=== PATIENT | female | born 1945 | race Caucasian/White ===

== ENCOUNTER 2022-04-16 11:08 | Outpatient (RCR) | payer MEDICARE, SELFPAY | END 2022-06-23 14:21 | disposition home or self-care (01) | PROVIDERS: PCP Family Medicine; Visit Provider Orthopaedic Surgery | DX: M25.561 Pain in right knee (principal); R26.9 Unspecified abnormalities of gait and mobility; Z51.89 Encounter for other specified aftercare | CPT/HCPCS: 97110; 97112 ==

== ENCOUNTER 2023-09-28 10:23 | Emergency (ER) | payer MEDICARE, SELFPAY ==
[2023-09-28 10:34] VITALS: BP 162/88; PULSE 70; RESP 18; TEMP 36.6; O2SAT 98; BMI 31.8
--- NOTE | 2023-09-28 11:05 | CRLHL7_ITS ---
For Patients: As a result of the Century Cures Act, medical imaging exams and procedure reports are released immediately into your electronic medical record. You may view this report before your referring provider. If you have questions, please contact your health care provider. INDICATION: Left flank pain TECHNIQUE: Axial images were obtained from the diaphragm to the pubic symphysis. Reformats were obtained in the coronal and sagittal plane. IV Contrast: None Oral Contrast: None COMPARISON: Abdomen and pelvis CT 02/06/2021 FINDINGS: Lower chest: Large hiatal hernia with most of the stomach intrathoracic. Calcified granulomata. Liver: Normal in contour with hepatic cysts, largest measuring 11 millimeters. Gallbladder and bile ducts: Unremarkable. No stones or inflammation. No biliary dilatation. Spleen: Calcification in the spleen consistent with old granulomatous disease. Pancreas: Moderate pancreatic atrophy. Adrenal glands: Unremarkable. No nodules. Kidneys: Nephrolithiasis with moderate left hydronephrosis and an obstructing stone at the left ureteropelvic junction measuring 7 x 4 x 10 millimeters. Vasculature: Atherosclerosis without abdominal aortic aneurysm. GI tract: Large hiatal hernia with the stomach intrathoracic. No dilated loops of large or small intestine with colonic diverticulosis noted. Pelvis: Status post hysterectomy. Bones: Diffuse degenerative disc disease lumbar spine with anterolisthesis at L4-5 measuring 5 millimeters. IMPRESSION: 1. Nephrolithiasis with moderate left hydronephrosis and obstructing left ureteropelvic junction stone measuring 7 x 4 x 10 millimeters. 2. Large hiatal hernia. 3. Colonic diverticulosis. 4. Old granulomatous disease. Please note that all CT scans at this facility use dose modulation, iterative reconstruction, and/or weight-based dosing when appropriate to reduce radiation dose to as low as reasonably achievable. Dictated by Rolando Portillo MD @ 09/28/2023 1:37:43 PM (Electronically Signed)
--- NOTE | 2023-09-28 12:19 | ED_ITS ---
HPI - General Adult General Date Seen: 09/28/23 Chief complaint: Back Injury/Pain Stated complaint: Lower L back pain Time Seen by Provider: 09/28/23 10:49 Source: patient Mode of arrival: ambulatory Limitations: no limitations History of Present Illness HPI narrative: Patient is a 77-year-old here with her with left-sided back pain which started yesterday. She said that she has been having some low back pain for a while which she had thought a whole lot about because they have been moving some things in emptying out her attic and so she has been more physical than she normally would be. She has had some just generalized mid low back pain. Yesterday however she had onset of pain in her left side which was severe and associated with vomiting. She does have a remote history of kidney stone. She has not had urinary symptoms. The severe pain yesterday did resolve but then she developed severe flank pain again today again associated with vomiting and she decided to come in. No fevers. No diarrhea, she does say that for about 6 months she has been having problems with fecal incontinence which she assumed was just because she is getting old. She says she has a normal bowel movement about once a day, does not have diarrhea, black or bloody stools. Later in the day however she says that she will have incontinence of stool. She just assumed that she was not emptying out completely the 1st time she had a bowel movement. She has had multiple colonoscopies as she has a history of GI bleed and anemia, she says no source was ever found and her last colonoscopy was 5 or 6 years ago. Related Data Home Medications Medication Instructions Recorded Confirmed acetaminophen 500 mg tablet 1,000 mg PO PRN 04/23/22 04/23/22 amlodipine 5 mg tablet 5 mg PO DAILY 04/23/22 09/28/23 cholecalciferol (vitamin D3) 50 2,000 unit PO DAILY 04/23/22 09/28/23 mcg (2,000 unit) tablet clobetasol 0.05 % topical cream 1 topical .2X/Week as needed PRN 04/23/22 04/23/22 omeprazole 20 mg capsule,delayed 20 mg PO QDAY 04/23/22 09/28/23 release venlafaxine 150 mg 150 mg PO DAILY 04/23/22 09/28/23 capsule,extended release 24 hr vit A 300 mcg-C 200 mg-E 27 1 tab PO DAILY 04/23/22 09/28/23 mg-lutein 2 mg and minerals tablet (Ocuvite with Lutein) rosuvastatin 10 mg tablet 10 mg PO QPM 09/28/23 09/28/23 Allergies Allergy/AdvReac Type Severity Reaction Status Date / Time hydrocodone Allergy Mild GI upset Verified 04/23/22 09:48 Review of Systems Status of ROS: Reports: 10 or more systems reviewed and unremarkable except as noted in History and below [facility] Medical History Postoperative pulmonary embolism ?T81.718A - Complication of other artery following a procedure, not elsewhere classified, initial encounter (ICD-10) ?I26.99 - Other pulmonary embolism without acute cor pulmonale (ICD-10) Surgical History Status post total knee replacement ?Z96.659 - Presence of unspecified artificial knee joint (ICD-10) Status post arthroscopy of left knee ?Z98.890 - Other specified postprocedural states (ICD-10) Social History Smoking Status: Never smoker How often do you have a drink containing alcohol: never AUDIT-C Alcohol total score: 0 Non-prescribed substance use: denies use Exam Narrative: Exam Narrative: Vital signs as noted above. In general, an alert, well-appearing patient. Head: Normocephalic, atraumatic. Eyes: Pupils are equal reactive. Extraocular movements are full. Conjunctivae are normal. ENT: Mucous membranes are moist. Throat is normal. Neck: Supple without lymphadenopathy. Heart: Regular rate and rhythm. No murmur or rub. Lungs: Clear bilaterally. No increased work of breathing, crackles or wheezes. Abdomen: Soft and nontender. No organomegaly. No CVA tenderness. Extremities: Well perfused. No edema. No calf tenderness. Pulses intact. Neurologic: Patient is alert and oriented to person and place. Speech is fluent. Face is symmetric. Moves all extremities equally. Strength is 5 of 5 in lower extremities. Affect: Normal. Skin: Warm and dry. Well perfused. Const: Vital Signs, click to edit/add: Vital Signs - 24 hr 09/28/23 10:34 09/28/23 12:30 09/28/23 14:26 Temperature 97.8 F 99.7 F H Pulse Rate 86 75 Pulse Rate [Right Pulse Oximeter] 70 Respiratory Rate 18 18 16 Blood Pressure 137/87 144/93 H Blood Pressure [Ri ght Upper Arm] 162/88 H Pulse Oximetry 98 98 95 Oxygen Delivery Me thod Room Air 09/28/23 14:48 Temperature 99.7 F H Pulse Rate Pulse Rate [Right Pulse Oximeter] 70 Respiratory Rate 16 Blood Pressure Blood Pressure [Ri ght Upper Arm] 162/88 H Pulse Oximetry Oxygen Delivery Me thod Course Course ED Course: Following initial evaluation, I ordered a UA as well as a CT of the abdomen without contrast to look for kidney stone, evaluate for any obvious bony abnormalities contributing to back pain, as well as assess for any unexpected intra-abdominal process such as diverticulitis. UA to rule out UTI. By my review, CT scan of the abdomen shows a large obstructing stone with hydronephrosis on the left. I did not see any acute bony abnormalities although she does have spondylolisthesis and degenerative changes. Final radiology read is as follows:FINDINGS: Lower chest: Large hiatal hernia with most of the stomach intrathoracic. Calcified granulomata. Liver: Normal in contour with hepatic cysts, largest measuring 11 millimeters. Gallbladder and bile ducts: Unremarkable. No stones or inflammation. No biliary dilatation. Spleen: Calcification in the spleen consistent with old granulomatous disease. Pancreas: Moderate pancreatic atrophy. Adrenal glands: Unremarkable. No nodules. Kidneys: Nephrolithiasis with moderate left hydronephrosis and an obstructing stone at the left ureteropelvic junction measuring 7 x 4 x 10 millimeters. Vasculature: Atherosclerosis without abdominal aortic aneurysm. GI tract: Large hiatal hernia with the stomach intrathoracic. No dilated loops of large or small intestine with colonic diverticulosis noted. Pelvis: Status post hysterectomy. Bones: Diffuse degenerative disc disease lumbar spine with anterolisthesis at L4-5 measuring 5 millimeters. IMPRESSION: 1. Nephrolithiasis with moderate left hydronephrosis and obstructing left ureteropelvic junction stone measuring 7 x 4 x 10 millimeters. 2. Large hiatal hernia. 3. Colonic diverticulosis. 4. Old granulomatous disease. She has continued to feel comfortable here. Urinalysis did show 10-25 red cells and 10-25 white cells. She had moderate bacteria, significant mucus, few squamous cells. I did do some blood work, her white blood cell count is normal at 7.8, mild anemia with a hemoglobin of 11.7. A CRP is 0.7, lactate is normal at 0.8, creatinine is 0.6 and electrolytes are normal. I do think it is reasonable to cover her with an antibiotic given that there is some white cells in the urine but at this time she is not showing signs of urinary tract infection and it is possible that the UA is contaminated, particularly given that she is having trouble with fecal incontinence. I did strongly recommend that she follow that up with her primary doctor as I discussed with her that that is not a typical symptom associated with simply aging. As this has been going on for 6 months, she has no other neurologic complaints and has normal bowel movements daily, I do not think this is something acute that needs to be further evaluated today. Final radiology read measures to stone at 7 x 4 x 10 mm, discussed with her that this will not likely pass without a procedure. She will need urology follow-up. Discussed with her that if she develops any symptoms of infection, fevers, chills, weakness, vomiting etcetera she should come back to the emergency department. In the meantime, maintain hydration, Keflex, Zofran, oxycodone prescribed for home as needed. Vital Signs Vital signs: Initial Vital Signs Temperature 97.8 F 09/28/23 10:34 Temperature Source Temporal Artery Scan 09/28/23 10:34 Pulse Rate 70 09/28/23 10:34 Respiratory Rate 18 09/28/23 10:34 Blood Pressure 162/88 H 09/28/23 10:34 Blood Pressure Mean 112 H 09/28/23 10:34 Blood Pressure Position Sitting 09/28/23 10:34 Pulse Oximetry 98 09/28/23 10:34 Oxygen Delivery Method Room Air 09/28/23 10:34 Vital Signs Temperature 97.8 F 09/28/23 10:34 Pulse Rate 70 09/28/23 10:34 Respiratory Rate 18 09/28/23 10:34 Blood Pressure 162/88 H 09/28/23 10:34 Pulse Oximetry 98 09/28/23 10:34 Oxygen Delivery Method Room Air 09/28/23 10:34 Temperature 99.7 F H 09/28/23 14:48 Pulse Rate 70 09/28/23 14:48 Respiratory Rate 16 09/28/23 14:48 Blood Pressure 162/88 H 09/28/23 14:48 Pulse Oximetry 95 09/28/23 14:26 Oxygen Delivery Method Room Air 09/28/23 10:34 Medical Decision Making Lab Data Labs: Lab Results 09/28/23 09/28/23 Range/Units 11:05 13:32 WBC 7.75 (4.50-11.00) K/uL RBC 4.47 (4.00-5.20) m/uL Hgb 11.7 L (12.0-16.0) gm/dL Hct 38.3 (33.0-51.0) % MCV 86 (80-100) fL MCH 26 (26-34) pg MCHC 31 L (32-36) gm/dL RDW Coeff of Felix 16.3 H (11.5-15.5) % Plt Count 260 (140-440) K/uL Neut % (Auto) 74.5 H (42.0-72.0) % Lymph % (Auto) 17.2 L (20-44) % [place] % (Auto) 7.4 (0.0-11.0) % Eos % (Auto) 0.4 (0.0-7.0) % Baso % (Auto) 0.4 (0.0-3.0) % Neut # (Auto) 5.80 (1.7-7.0) K/uL Lymph # (Auto) 1.30 (0.90-2.90) K/uL [place] # (Auto) 0.60 (0.00-0.90) K/UL Eos # (Auto) 0.03 (0.00-0.50) K/uL Baso # (Auto) 0.03 (0.00-0.30) K/uL Abs Immat Gran (auto) 0.01 (0.00-0.30) K/uL Imm/Tot Granulo (auto) 0.1 % Sodium 140 (135-149) mmol/L Potassium 3.9 (3.6-5.1) mmol/L Chloride 106 (96-114) mmol/L Carbon Dioxide 26 (20-32) mmol/L Anion Gap 8 (7-15) mEq/L BUN 13 (7-30) mg/dL Creatinine 0.6 (0.5-1.5) mg/dL Estimated Creat Clear 34.91 Estimated GFR 94 ml/min Glucose 100 (60-115) mg/dL Lactate 0.8 (0.5-1.9) mmol/L Calcium 10.4 (8.4-10.6) mg/dL C-Reactive Protein 0.7 (0.5-1.0) mg/dL Urine Color Yellow (Yellow) Urine Appearance Clear (Clear) Urine pH 6.5 (5.0-8.5) Ur Specific [place] 1.020 (1.000-1.030) Urine Protein Trace A (Negative) Urine Glucose (UA) Negative (Negative) Urine Ketones Trace A (Negative) Urine Blood 1+ A (Negative) Urine Nitrite Negative (Negative) Urine Bilirubin Negative (Negative) Urine Urobilinogen 0.2 (0.2-1.0) Ur Leukocyte Esterase 1+ A (Negative) Urine RBC 10-25 A (0-2) Urine WBC 10-25 A (0-5) Ur Squamous Epith Cells Few (None-Few) Amorphous Sediment Few A (None) Urine Bacteria Moderate A (None) Urine Mucus Many A (None) Discharge Plan Discharge Clinical Impression: Calculus of left ureter Patient Disposition: Home, Self-Care Condition: Stable Instructions: Hydronephrosis (ED), Ureteral Stones (ED) Additional Instructions: You have a large kidney stone that is obstructing the left kidney. I have recommended that we cover you with an antibiotic as well. You will need urology follow-up as this stone is too large to pass without some sort of procedure. If at any time you develop new symptoms such as fevers, chills, weakness, or other worsening, return for re-evaluation. I have prescribed oxycodone and Zofran if needed for severe pain, nausea or vomiting. Make sure you are staying well hydrated. Prescriptions: No Action cholecalciferol (vitamin D3) 50 mcg (2,000 unit) tablet 2,000 unit PO DAILY Ocuvite with Lutein 300 mcg-200 mg-27 mg-2 mg tablet 1 tab PO DAILY amlodipine 5 mg tablet 5 mg PO DAILY venlafaxine 150 mg capsule,extended release 24hr 150 mg PO DAILY clobetasol 0.05 % cream 1 topical .2X/Week as needed PRN omeprazole 20 mg capsule,delayed release(DR/EC) 20 mg PO QDAY acetaminophen 500 mg tablet 1,000 mg PO PRN rosuvastatin 10 mg tablet 10 mg PO QPM Follow Up/Referrals: Tanya Thornton DO [Primary Care Provider] - Stand Alone Forms: [employer] Info Instructions
[2023-09-28 12:30] VITALS: BP 137/87; PULSE 86; RESP 18; O2SAT 98
[2023-09-28 12:43] LABS: Appearance Urine Clear (Clear); Bilirubin Urine Negative (Negative); Blood Urine 1+ (Negative); Color Urine Yellow (Yellow); Glucose Urine Negative (Negative); Ketones Urine Trace (Negative); Leukocyte Esterase Urine 1+ (Negative); Nitrite Urine Negative (Negative); Protein Urine Trace (Negative); Urobilinogen Urine 0.2 (0.2-1.0); pH Urine 6.5 (5.0-8.5)
[2023-09-28 12:58] LABS: Amorphous Sediment Urine Few; Bacteria Urine Moderate; Mucus Urine Many; Squamous Epithelial Cell Urine Few (None-Few)
[2023-09-28 13:38] LABS: Lactate* 0.8 mmol/L (0.5-1.9)
[2023-09-28 13:40] LABS: Basophils Absolute Auto 0.03 K/uL (0.00-0.30); Basophils Percent Auto 0.4 % (0.0-3.0); Eosinophils Absolute Auto 0.03 K/uL (0.00-0.50); Eosinophils Percent Auto 0.4 % (0.0-7.0); Hematocrit 38.3 % (33.0-51.0); Hemoglobin* 11.7 gm/dL (12.0-16.0); Immature Granulocytes Abs Auto 0.01 K/uL (0.00-0.30); Immature Granulocytes Pct Auto 0.1 %; Lymphocytes Percent Auto 17.2 % (20-44); Mean Corpuscular HGB Conc 31 gm/dL (32-36); Mean Corpuscular Hemoglobin 26 pg (26-34); Mean Corpuscular Volume 86 fL (80-100); Monocytes Percent Auto 7.4 % (0.0-11.0); Neutrophils Percent Auto 74.5 % (42.0-72.0); Platelet Count* 260 K/uL (140-440); RDW Coefficient of Variation % 16.3 % (11.5-15.5); Red Blood Count 4.47 m/uL (4.00-5.20); White Blood Count* 7.75 K/uL (4.50-11.00)
[2023-09-28 13:42] LABS: Slide Review Reflex No
[2023-09-28 14:02] LABS: Chloride* 106 mmol/L (96-114); Potassium* 3.9 mmol/L (3.6-5.1); Sodium* 140 mmol/L (135-149)
[2023-09-28 14:05] LABS: Anion Gap 8 mEq/L (7-15); Blood Urea Nitrogen* 13 mg/dL (7-30); Carbon Dioxide* 26 mmol/L (20-32); Creatinine* 0.6 mg/dL (0.5-1.5); Est. Creatinine Clearance* 34.91; Estimated Glomerular Filt Rate 94 ml/min; Glucose* 100 mg/dL (60-115)
[2023-09-28 14:06] LABS: Calcium* 10.4 mg/dL (8.4-10.6)
[2023-09-28 14:09] LABS: C Reactive Protein* 0.7 mg/dL (0.5-1.0)
[2023-09-28 14:26] VITALS: BP 144/93; PULSE 75; RESP 16; TEMP 37.6; O2SAT 95
[2023-09-28 14:48] VITALS: BP 162/88; PULSE 70; RESP 16; TEMP 37.6
== END 2023-09-28 14:45 | disposition home or self-care (01) ==
PROVIDERS: Emergency Provider Emergency Medicine; PCP Family Medicine
DX: N20.1 Calculus of ureter (principal)
CPT/HCPCS: 36415; 74176; 80048; 81001; 83605; 85025; 86140; 87086; 95992; 99284

== ENCOUNTER 2023-10-26 16:03 | Emergency (ER) | payer MEDICARE, SELFPAY ==
[2023-10-26 16:08] VITALS: BP 149/88; PULSE 94; RESP 20; TEMP 35.9; O2SAT 97; BMI 32.2
--- NOTE | 2023-10-26 16:52 | ED.GENADULT ---
HPI - General Adult General Chief complaint: Abdominal Pain Stated complaint: Severe pain-kidney stone Time Seen by Provider: 10/26/23 16:25 Source: patient Mode of arrival: ambulatory Limitations: no limitations History of Present Illness HPI narrative: 77-year-old female presenting today with left-sided abdominal pain. On September 28, patient was diagnosed with a left-sided kidney stone that was obstructing. It was 7 x 4 x 10 mm. She does have a urology appointment set up at [facility] on the 09 of November for retrieval of the stone. She was sent home on antibiotics which she finished, oxycodone and Zofran. She states that for the most part her pain has been controlled with Tylenol except for today, proximally for 15 hours ago the pain started and has been intractable. She has been dry heaving all day has not been able to eat. She denies fevers or chills. Pain is located at the same site as it has always been. Related Data Home Medications Medication Instructions Recorded Confirmed acetaminophen 500 mg tablet 1,000 mg PO PRN 04/23/22 04/23/22 amlodipine 5 mg tablet 5 mg PO DAILY 04/23/22 10/26/23 cholecalciferol (vitamin D3) 50 2,000 unit PO DAILY 04/23/22 10/26/23 mcg (2,000 unit) tablet clobetasol 0.05 % topical cream 1 topical .2X/Week as needed PRN 04/23/22 04/23/22 omeprazole 20 mg capsule,delayed 20 mg PO QDAY 04/23/22 10/26/23 release venlafaxine 150 mg 150 mg PO DAILY 04/23/22 10/26/23 capsule,extended release 24 hr vit A 300 mcg-C 200 mg-E 27 1 tab PO DAILY 04/23/22 10/26/23 mg-lutein 2 mg and minerals tablet (Ocuvite with Lutein) rosuvastatin 10 mg tablet 10 mg PO QPM 09/28/23 10/26/23 cephalexin .ROUTE 10/26/23 oxycodone PO 10/26/23 Allergies Allergy/AdvReac Type Severity Reaction Status Date / Time hydrocodone AdvReac Mild Nightmares Verified 10/26/23 16:16 Review of Systems Status of ROS: Reports: 10 or more systems reviewed and unremarkable except as noted in History and below [facility] Medical History Postoperative pulmonary embolism ?T81.718A - Complication of other artery following a procedure, not elsewhere classified, initial encounter (ICD-10) ?I26.99 - Other pulmonary embolism without acute cor pulmonale (ICD-10) Surgical History Status post total knee replacement ?Z96.659 - Presence of unspecified artificial knee joint (ICD-10) Status post arthroscopy of left knee ?Z98.890 - Other specified postprocedural states (ICD-10) Social History Smoking Status: Never smoker How often do you have a drink containing alcohol: never How often do you have six or more drinks on one occasion: Never AUDIT-C Alcohol total score: 0 Non-prescribed substance use: denies use Exam Narrative: Exam Narrative: Well-nourished well-developed patient , quite uncomfortable. Alert and oriented. Answers questions appropriately. Mood and affect are appropriate. Thoughts are goal oriented and rational. No tangential or magical thinking noted. Patient speaks in full sentences without needing to catch Her breath. HEENT: Normocephalic atraumatic. Pupils are equally round reactive to light. Extraocular muscles are intact. Conjunctivae are moist without any icterus noted. Moist mucous membranes. Cardiovascular: Heart is regular rate and rhythm S1 and S2 are present without any murmurs. Lungs: Clear to auscultation bilaterally no wheezes rhonchi or rales are appreciated. Patient takes deep breaths without any discomfort. Abdomen: Soft and nondistended with normal bowel sounds. she does have some left-sided tenderness, positive CVA tenderness. Extremities: Bilateral lower extremities are without edema. Skin: Well perfused without any obvious rashes. Const: Vital Signs, click to edit/add: Vital Signs - 24 hr 10/26/23 16:08 Temperature 96.6 F L Pulse Rate [Pulse Oximeter] 94 Respiratory Rate 20 Blood Pressure [Ri ght Upper Arm] 149/88 H Pulse Oximetry 97 Oxygen Delivery Me thod Room Air Course Course ED Course: IV was started and patient received 500 mL of normal saline, Zofran and Toradol. She felt significantly better. Lab work did not show any evidence of infection or kidney dysfunction. At this time, patient felt comfortable going home and continuing pain management until her procedure on the . I did refill her oxycodone. Vital Signs Vital signs: Initial Vital Signs Temperature 96.6 F L 10/26/23 16:08 Temperature Source Temporal Artery Scan 10/26/23 16:08 Pulse Rate 94 10/26/23 16:08 Respiratory Rate 20 10/26/23 16:08 Blood Pressure 149/88 H 10/26/23 16:08 Blood Pressure Mean 108 H 10/26/23 16:08 Blood Pressure Position Sitting 10/26/23 16:08 Pulse Oximetry 97 10/26/23 16:08 Oxygen Delivery Method Room Air 10/26/23 16:08 Vital Signs Temperature 96.6 F L 10/26/23 16:08 Pulse Rate 94 10/26/23 16:08 Respiratory Rate 20 10/26/23 16:08 Blood Pressure 149/88 H 10/26/23 16:08 Pulse Oximetry 97 10/26/23 16:08 Oxygen Delivery Method Room Air 10/26/23 16:08 Temperature 96.6 F L 10/26/23 16:08 Pulse Rate 94 10/26/23 16:08 Respiratory Rate 20 10/26/23 16:08 Blood Pressure 149/88 H 10/26/23 16:08 Pulse Oximetry 97 10/26/23 16:08 Oxygen Delivery Method Room Air 10/26/23 16:08 Medications Administered Medications: Generic Name Dose Route Start Last Admin Trade Name Freq PRN Reason Stop Dose Admin Sodium Chloride 500 mls @ 500 mls/hr 10/26/23 16:42 10/26/23 17:00 0.9 % Sodium Chloride 500 Ml IV 10/26/23 17:41 500 mls/hr .Q1H ONE Administration Discontinued Medications Generic Name Dose Route Start Last Admin Trade Name Freq PRN Reason Stop Dose Admin Ketorolac Tromethamine 30 mg 10/26/23 16:42 10/26/23 17:01 Ketorolac 30 Mg/Ml Inj IVP 10/26/23 16:43 30 mg ONCE ONE Administration Ondansetron HCl 4 mg 10/26/23 16:42 10/26/23 17:02 Ondansetron 2 Mg/Ml Inj IVP 10/26/23 16:43 4 mg ONCE ONE Administration Medical Decision Making MDM Narrative Medical decision making narrative: 77-year-old female with a large renal calculus, scheduled for procedure on the . Patient discharged in improved condition. Medical Records Medical records reviewed: Yes I reviewed the patient's medical records Lab Data Lab results reviewed: Yes I reviewed the patient's lab results Labs: Lab Results 10/26/23 Range/Units 17:00 WBC 10.89 (4.50-11.00) K/uL RBC 4.55 (4.00-5.20) m/uL Hgb 12.0 (12.0-16.0) gm/dL Hct 39.4 (33.0-51.0) % MCV 87 (80-100) fL MCH 26 (26-34) pg MCHC 31 L (32-36) gm/dL RDW Coeff of Felix 15.8 H (11.5-15.5) % Plt Count 233 (140-440) K/uL Neut % (Auto) 83.3 H (42.0-72.0) % Lymph % (Auto) 10.3 L (20-44) % [place] % (Auto) 5.4 (0.0-11.0) % Eos % (Auto) 0.4 (0.0-7.0) % Baso % (Auto) 0.2 (0.0-3.0) % Neut # (Auto) 9.10 H (1.7-7.0) K/uL Lymph # (Auto) 1.10 (0.90-2.90) K/uL [place] # (Auto) 0.60 (0.00-0.90) K/UL Eos # (Auto) 0.04 (0.00-0.50) K/uL Baso # (Auto) 0.02 (0.00-0.30) K/uL Abs Immat Gran (auto) 0.04 (0.00-0.30) K/uL Imm/Tot Granulo (auto) 0.4 % Sodium 141 (135-149) mmol/L Potassium 3.9 (3.6-5.1) mmol/L Chloride 106 (96-114) mmol/L Carbon Dioxide 25 (20-32) mmol/L Anion Gap 10 (7-15) mEq/L BUN 22 (7-30) mg/dL Creatinine 1.2 (0.5-1.5) mg/dL Estimated Creat Clear 29.10 Estimated GFR 47 ml/min Glucose 149 H (60-115) mg/dL Lactate 1.0 (0.5-1.9) mmol/L Calcium 10.1 (8.4-10.6) mg/dL C-Reactive Protein 1.2 H (0.5-1.0) mg/dL Discharge Plan Discharge Clinical Impression: Ureteric colic Patient Disposition: Home, Self-Care Condition: Stable Additional Instructions: Take pain medication as needed/ as directed. Follow up in the ER if you develop worsening pain, fever or vomiting. Pain medications sent to [facility]. Prescriptions: No Action cholecalciferol (vitamin D3) 50 mcg (2,000 unit) tablet 2,000 unit PO DAILY Ocuvite with Lutein 300 mcg-200 mg-27 mg-2 mg tablet 1 tab PO DAILY amlodipine 5 mg tablet 5 mg PO DAILY venlafaxine 150 mg capsule,extended release 24hr 150 mg PO DAILY clobetasol 0.05 % cream 1 topical .2X/Week as needed PRN omeprazole 20 mg capsule,delayed release(DR/EC) 20 mg PO QDAY acetaminophen 500 mg tablet 1,000 mg PO PRN rosuvastatin 10 mg tablet 10 mg PO QPM cephalexin .ROUTE oxycodone PO Follow Up/Referrals: Tanya Thornton DO [Primary Care Provider] - Stand Alone Forms: [facility] Info Instructions
[2023-10-26] MEDS: 0.9 % SODIUM CHLORIDE 500 ML 500 ML IV (17:00)
[2023-10-26] MEDS: KETOROLAC 30 MG/ML inj IVP (17:01)
--- OUTSIDE RECORDS SUMMARY | 2023-10-26 17:01 | XMS_ITS | Data Portability ---
Author Name Unknown Address [address] [place] [address] Phone [phone] Organization [facility], [facility] Address [address] [place] [address] Care Team Providers Care Filament Maker Name Role Phone ANT CHAPA Primary Care Provider Assessment Encounter Date Assessment Date Assessment LastModified by Organization Details LastModified Time 10/08/2023 10/08/2023 77F with 10 mm left UPJ/proximal ureteral stone. Discussed medical expulsive therapy versus surgical intervention including options of ESWL, URS/HLL/stent, and their respective risks/complicat ions including but not limited to post-procedure pain or stent pain, infection/UTI/s epsis, hematuria, anesthesia reaction, injury to adjacent structures, and possible need for additional/stag ed procedure. She??would like to proceed with surgery. ?? 1. 10 mm left UPJ/left prox ureteral stone - reviewed outside CT scan, labs, ED notes - no infectious symptoms at present and currently on Keflex -- complete Keflex course - discussed medical expulsive therapy versus surgical intervention as above -- plan to proceed with surgery - continue PRN pain meds-- Tylenol, oxycodone - reviewed stone prevention diet - return precautions for ER discussed-- worsening pain, fever/chills, N/V, other concerns - schedule with 1st avail MD for cysto, left URS/HLL/stent (pt leaving [facility] Nov 12, so ideally done prior to that) Addm 10/09: Reviewed CT with Dr. Maier who agrees with cysto, left URS/HLL/stent. Sent case to [facility] for surgery scheduling. [email or web address] Not available 10/09/2023 12:05:13 Plan of Treatment Reminders Order Date Submit Date Provider Last Modified By Organization Details Last Modified Time Details Appointments None recorded. Lab urinalysis , dipstick 2022 023 everton [facility], [address], [place], [address], 14:54:29 Referral None recorded. Procedures None recorded. Surgeries None recorded. Imaging None recorded. Medication Orders None recorded. Patient TargetsNo targets recorded. Patient InstructionsNo instructions recorded. Reason for Referral None Reported. Results Created Date Observation Date Name Description Value Unit Range Abnormal Flag LastModifiedBy Organization Detail LastModifiedTime 10/08/2010/08/2023 urina lysis , dipst ick pH-Status 5.5 Not Available [facility] [address], [place], [address], 10/08/2023 14:48:28 10/08/20 23 10/08/2023 urina lysis , dipst ick Leuko-Status Trace Not Available [facility] [address], [place], [address], 10/08/2023 14:48:28 Result Notes None recorded. Procedures Surgical History Date Name Laterality Status Provider Name and Address Organization Details Recorded Time Appendectomy completed Cristal cruz [facility] 10/08/2023 14:53:07 Shoulder joint surgery completed Cristal cruz [facility] 10/08/2023 14:53:13 [facility] 10/08/2023 14:53:21 Imaging Results None recorded. Procedure Notes None recorded. Medical Equipment None Reported. Allergies No known drug allergies Medications Name Sig Start Date Stop Date Status Note LastModified by Organization Details LastModified Time clobetasol 0.05 % topical cream APPLY TO THE AFFECTED AREA TWICE WEEKLY active Not Available Not Available No t Available venlafaxine ER 150 mg capsule,extend ed release 24 hr TAKE 1 CAPSULE BY MOUTH EVERY DAY WITH MEAL active Not Available Not Available No t Available amlodipine 5 mg tablet active Not Available Not Available No t Available cephalexin 500 mg capsule 2022 active Not Available Not Available Not Avai lable omeprazole 20 mg capsule,delaye d release active Not Available Not Available No t Available ondansetron 4 mg disintegrating tablet 2022 active Not Available Not Available Not Avai lable oxycodone 5 mg tablet 2022 active Not Available Not Available Not Avai lable rosuvastatin 10 mg tablet active Not Available Not Available Not Available Vitals Date Recorded Body height Body mass index (BMI) Body weight Provider Name and Address Organization Details Last Updated DateTime 10/08/2023 152.4 cm 32.2 kg/m2 75171.74 g Cristal cruz [facility] 10/08/2023 14:51:18 Social History Question Answer Notes LastModified by Organizat ion Details LastModified Time Tobacco Smoking Status Never Smoker Cristal cruz [facility] 10/08/2023 14:47:01 What Is Your Level Of Alcohol Consumption? Moderate Information not available 10/08/2023 What Is Your Level Of Caffeine Consumption? Moderate Information not available 10/08/2023 What Was The Date Of Your Most Recent Tobacco Screening? 10/08/2023 Information not available 10/08/2023 Sex: Female Functional Status None recorded. Mental Status None recorded. Family History Relationship Description Onset Age of this Age Resolved Age Notes Mother Family history of br east cancer Father Malignant tumor of lung Medical History Condition Response Other N High Blood Pressure N Kidney Stones Y Lung Disease N Depression N GERD/Acid Reflux Y Sexually Transmitted Infection N Cancer N High Cholesterol Y Diabetes N Bleeding Disorder N Heart Disease N Gynecological HistoryNo gynecological history recorded. Obstetrics History GPAL:G 2 P 0 0 0 0 Past Encounters Encounter ID Performer Location Encounter Start Date Encounter Closed Date Diagnosis/Indication [id number] VIVIANA [facility] [address] [place] [address] 10/08/2023 14:30:07 10/14/2023 09:40:27 Kidney stone Health Concerns Section Related Observation LastModified by Organization Detai ls LastModified Time None Recorded Concern Status LastModified by Organization Details LastModified Time None Recorded Advance Directives Directive None Recorded Payers Encounter Date Sequence Insurance Name Policy Number Policy De Santiago Covered Member ID De Santiago Member ID Guarantor Name 10/08/2023 1 UCARE - DOS ON OR AFTER 19 (MEDICARE REPLACEMENT/A DVANTAGE - HMO) [id number] Lee A Paz [id number] Lee A Paz 10/08/2023 2 [place] [employer] [facility] Lee A Paz [id number] Lee A Paz Notes Date Note Type Note Provider Name and Address Organization Details Recorded Time 10/08/2023 text/html HPI Notes: 77F with 10 mm left UPJ/proximal ureteral stone. Seen at [place] ED on 09/30 for left flank and left abdominal pain. CT demonstrated 10 mm left UPJ stone. Was discharged on 2 weeks Keflex. Today, reports some pain in her mid-back, but states she is somewhat improved from ER visit last week. Had dry heaving during severe pain episodes last week, but no N/V this week. Currently on Keflex. Denies dysuria, gross hematuria, fever or chills. Passed small kidney stone a few years ago, but has never required surgery for kidney stones. UA today trace leuks, protein 30 Labs: 09/30/23 Cr 0.6 Imagin09/30/23: CT A/P: 7 x 4 x 10 mm left UPJ/left proximal ureteral stone with hydro Trang Gonzales PA-C [address] [place] [address],[address], [place], [address], [facility] 10/09/2023 12:05:24 OBGyn Episode No OBEpisode recorded.
--- OUTSIDE RECORDS SUMMARY | 2023-10-26 17:01 | XMS_ITS | Clinical Summary ---
Author Name Unknown Organization [facility] Address [place], [place] [address] Care Team Providers Care Time Clock Inspector Name Role Phone Miguel Cedeno MD Unavailable [phone] Tanya Thornton DO Primary Care Provider [phone] Allergies Active Allergy Reactions Criticality Noted Date Comments Hydrocodone-Acetaminophen GI Upset 07/08/2018 Medications Medication Sig Dispensed Refills Start Date End Date Status ranibizumab (LUCENTIS) 0.5 mg/0.05 mL soln Inject 0.05 mL intraocular one time for 1 dose. Every 7-8 weeks 0.05 mL 0 10/29/2016 Active medication order composer Restless Leg supplement at night if needed. 0 10/29/2016 Active acetaminophen (ACETAMINOPHEN EXTRA STRENGTH) 500 mg tablet Take 1,000 mg by mouth every 6 hours if needed (pain). Max acetaminophen dose: 4000mg in 24 hrs. 0 Active Blood Pressure MonitorIndications:E ssential hypertension Monitor blood pressure at home, 3-4 times per week 1 Device 0 08/11/2018 Active dl-qy-UW-vit M-feuse-tcje-zeax (OCUVITE EYE PLUS MULTI) 200-15-150 mcg tab Take by mouth. 0 02/29/2020 Active cholecalciferol (Vitamin D-3) 2,000 unit capsule Take 1 Capsule (2,000 units) by mouth once daily. 0 03/06/2022 Active amLODIPine (NORVASC) 5 mg tabletIndications:HT N (hypertension) Take 1 Tablet (5 mg) by mouth once daily. 90 Tablet 3 03/23/2023 Active clobetasol cream 0.05% (TEMOVATE) 0.05 % creamIndications:Vag inal itching APPLY TO THE AFFECTED AREA TWICE WEEKLY 60 g 1 03/23/2023 Active omeprazole (PRILOSEC) 20 mg Delayed-Release capsuleIndications:G astroesophageal reflux disease without esophagitis Take 1 Capsule (20 mg) by mouth once daily before a meal. 90 Capsule 3 03/23/2023 Active Additional Information Patient taking differently:20 mg OralTWICE DAILY BEFORE MEALS, Reported on 06/25/2023 venlafaxine (EFFEXOR XR) 150 mg Extended-Release capsuleIndications:Ramo falcon depressive disorder, recurrent, in remission (HC) Take 1 Capsule (150 mg) by mouth once daily with evening meal. 90 Capsule 3 03/23/2023 Active rosuvastatin (CRESTOR) 10 mg tabletIndications:Hy perlipidemia, unspecified hyperlipidemia type Take 1 Tablet (10 mg) by mouth at bedtime. 90 Tablet 3 03/30/2023 Active CPAPIndications:LEANN (obstructive sleep apnea) CPAP machine for home use at pressure 5-15cmw, full face mask x1/3month with a full face cushion x1/mo 1 Each 11 08/19/2023 Active Active Problems Problem Noted Date Diagnosed Date RBBB 03/23/2023 Acute GI bleeding 07/08/2018 Blood loss anemia 07/08/2018 Anemia of unknown etiology 02/02/2018 Overview: Found during pneumonia work up BCC (basal cell carcinoma), face 02/02/2018 Overview: Left cheek and nose - durant excision Pre-diabetes 08/18/2014 Routine adult health maintenance 09/06/2013 Overview: Colonoscopy 08/2013 normal repeat in 10 years Rotator cuff injury 11/20/2011 Major depressive disorder, recurrent episode 03/2010 Internal hemorrhoids with other complication Esophageal reflux 02/16/2007 Overview: EGD 07/2013 erosive gastritis EGD 01/2018 Hiatal hernia, no bleeding Unspecified essential hypertension 02/16/2007 Other and unspecified hyperlipidemia 02/16/2007 Irritable bowel syndrome 02/16/2007 Resolved Problems Problem Noted Date Diagnosed Date Resolved Date Deep vein thrombosis (DVT) of lower extremity 07/08/20 18 03/23/2023 Bilateral pulmonary embolism 07/08/2018 02/08/2022 Cystocele, midline 03/02/2008 1 Rectocele 03/02/2008 07/29/2011 Female stress incontinence 03/02/2008 1 Encounters Date Type Department Care Team Description 09/30/2023 1:10 PM SENIOR TAX MANAGER Office Visit [email or web address] [address] [place] [address] Aide Oreilly PA Follow Up (Kidney [facility] ); Referral (Urology ) 09/30/2023 Travel 09/28/2023 Orders Only [facility] Scanner 1 scan: (1-Ord) [facility], ABD PELVIS WO CON, 09/28/2023 08/19/2023 9:00 AM SENIOR TAX MANAGER Office Visit [facility] [[email or web address] [address] [place] [address] Amari Fulton MD Sleep Follow-up 08/19/2023 Travel 08/10/2023 Telephone [facility] [[email or web address]] [address] [place] [address] Tanya Thornton, Results 08/06/2023 11:15 AM CDT Office Visit [facility] [[email or web address] [address] [place] [address] Tanya Thornton DO Follow Up 08/06/2023 Travel from Last 3 Months Immunizations Name Administration Dates Next Due AMB Influenza, IIV4 PF (=>6 mos Flulaval,Fluzone Fluarix)(Flu Clinic Only) 10/20/2019 COVID-19 vaccine (Monkimun NTfotopedia 30mcg/0.3mL) PF, MDV 02/13/2021,01/23/2021 Influenza, High-dose Inactivated 10/29/2016,09/11,08/17/2014 Influenza, IIV3 (Age >=3 years) 07/22/2013,09/03 Influenza, Inactivated IIV3 (Age 65+ Years) Preserv Free 08/11/2018,11/04/2017 Pneumococcal Poly,23-Valent (Pneumovax) 09/25/20 15 Pneumococcal conj 13-Valent (Prevnar 13) 014 Td (Age >=7 Years) 12/13/1996 Tdap 03/22/2009 Zoster (Zostavax-ZVL, live) 07/02/2010 Family History Medical History Relation Name Comments Cancer Father lung cancer Hypertension Father Other Father sleep apnea Diabetes Maternal Grandmother Cancer-breast Mother Cancer Paternal Aunt ovarian Blood Disease Paternal Grandmother had cl ots? Heart Disease Paternal Grandmother Other Sister Ramón multiple uterin e polyps, hysterectomy Anesthesia Malignant Hyperthermia No Family History Relation Name Status Comments Father Maternal Grandmother Mother Paternal Aunt Paternal Grandmother Sister Ramón Alive Social History Tobacco Use Types Packs/Day Years Used Date Smoking Tobacco: Never Smokeless Tobacco: Never Tobacco Cessation:Counseling Given: Yes Alcohol Use Standard Drinks/Week Comments Yes 0 (1 standard drink = 0.6 oz pur e alcohol) PHQ-2 Answer Date Recorded PHQ-2 TOTAL SCORE 1 03/23/2023 Social Connections Answer Date Recorded Frequency of Communication with Friends and Fami ly Not on file 03/10/2023 Alcohol Use Answer Date Recorded How often do you have a drink containing alcohol ? 2 06/25/2023 How many drinks containing a lcohol do you have on a typical day when you are drinking? 0 06/25/2023 How often do you have five or more drinks on one occasion? 0 06/25/2023 Financial Resource Strain Answer Date R ecorded Difficulty of Paying Living Expenses 3 03/06/2022 Difficulty of Paying Living Expenses Not on file 03/06/2022 Food Insecurity Answer Date Recorded Worried About Running Out of Food in the Last Ye ar 1 03/06/2022 Transportation Needs Answer Date Record ed Lack of Transportation (Medical) 1 03/06/2022 Housing Stability Answer Date Recorded Unable to Pay for Housing in the Last Year 1 03/06/2022 Sex and Gender Information Value Date Recorded Sex Assigned at Not on file Gender Identity Not on file Sexual Orientation Not on file Obstetrics History Para Term AB IAB SAB Ectopic Multiple Livin g Live Births 2 2 2 2 Date Outcome GA Total Labor Labor/2nd/3rd Weight Sex Delivery Anes PTL Bev A1 A5 Name Cl in Term Term Last Filed Vital Signs Vital Sign Reading Time Taken Comments Blood Pressure 112/73 09/30/2023 1:19 PM SENIOR TAX MANAGER Pulse 86 09/30/2023 1:19 PM SENIOR TAX MANAGER Temperature 36.8 ??C (98.3 ??F) 02/07/2021 8:07 AM CD T Respiratory Rate 16 07/14/2018 8:56 AM CDT Oxygen Saturation 94% 09/30/2023 1:19 PM SENIOR TAX MANAGER Inhaled Oxygen Concentration - - Weight 76.1 kg (167 lb 12.8 oz) 09/30/2023 1:19 PM SENIOR TAX MANAGER Height 150.5 cm (4' 11.25) 08/19/2023 8:[address] Body Mass Index 33.61 08/19/2023 8:53 AM SENIOR TAX MANAGER Plan of Treatment Health Maintenance Due Date Last Done Comments Zoster (shingles) series for age 50+ (2 of 3) 08/27/2010 07/02/2010 Tetanus booster 03/22/2019 03/22/2009, 12/13/1996 COVID-19 vaccine series ( season) 2023 02/13/2021, 01/23/2021 Influenza for age 65+ 06/12/2023 10/20/2019 , 08/11/2018, 11/04/2017, Additional history exists Medicare Wellness for age 65+ 03/22/2024, 02/06/2022, 01/10/2021, Additional history exists Depression screening for age 12+ 03/23/2024 03/23/2023, 02/06/2022, 01/14/2021, Additional history exists BMI (ht and wt on same day) for age 18+ 08/19/2024 08/19/2023, 05/27/2023, 03/23/2023, Additional history exists Lipids for age 45-75 03/23/2028 03/23/2023, 02/06/2022, 11/25/2017, Additional history exists Colonoscopy through age 75 07/10/202807/10, 09/06/2013, 09/06/2013, Additional history exists Tdap Completed 03/22/2009 Pneumococcal series for age 65+ Completed 5, 08/17/2014 Hepatitis C screening for ag e 18-79 Completed 11/08/2018 DEXA/DXA scan for age 65+ Completed 01/14/2021, Medical Devices Implanted Type Area Heavy Line Technician Device Identifier Shelf Expiration Date Model / Serial / Lot Oj Ivy [id number] - [id number] Implanted:Qty: 1 on 07/22/2011 at [facility] [employer] 12/20/2013 [id number] / / [id number] Procedures Procedure Name Priority Date/Time Associated Diagnosis Comments SCAN-CT INTERPRETATION 3 12:00 AM SENIOR TAX MANAGER HEPATIC FUNCTION PANEL Routine 3 12:06 PM CDT Elevated alkaline phosphatase level from Last 3 Months Results * SCAN-CT INTERPRETATION (09/28/2023 12:00 AM SENIOR TAX MANAGER) Anatomical Region Laterality Modality Other Scanner OTHER * LIVER PANEL (HEPATIC FUNCTION PANEL) (08/06/2023 12:06 PM CDT) ALBUMIN 4.2 4.0 - 4.9 g/dL 08/06/2023 10:56 PM CDT [facility] PROTEIN,TOTAL 7.3 6.0 - 8.0 g/dL 08/06/2023 10:56 PM CDT [facility] BILIRUBIN,TOTAL 0.2 0.0 - 1.2 mg/dL 08/06/2023 10:56 PM CDT [facility] BILIRUBIN,DIRECT <0.2 0.0 - 0.3 mg/dL 08/06/2023 10:56 PM CDT [facility] BILIRUBIN,INDIRE CT 08/06/2023 10:56 PM CDT [facility] Comment:Unable to calculate, Direct Bili <0.2 ALK PHOSPHATASE 100 35 - 104 IU/L 08/06/2023 10:56 PM CDT [facility] ALT (SGPT) 12 10 - 35 IU/L 08/06/2023 10:56 PM CDT [facility] AST (SGOT) 19 10 - 35 IU/L 08/06/2023 10:56 PM CDT [facility] Blood BLOOD SPECIMEN / Unknown Venipuncture / Unknown 08/06/2023 12:06 PM CDT 08/06/2023 12:07 PM CDT Tanya Thornton DO [facility] [address] [place] [address], from Last 3 Months Advance Directives Latest Code Status on File Code Status Date Activated Date Inactivated Comments Full Code 07/08/2018 3:58 PM 07/14/2018 2:27 PM Code Status History Code Status Date Activated Date Inactivated Comments Full Code 07/22/2011 7:27 AM 07/23/2011 2:56 PM Care Teams Time Clock Inspector Relationship Specialty Start Date End Date Tanya Thornton [place] [facility] [place] [address] PCP - General Family Practice 12/31/20 Miguel Cedeno MD [address] [facility] [address] [place] [address] Ophthalmology Surgery 08/17/14
--- OUTSIDE RECORDS SUMMARY | 2023-10-26 17:01 | XMS_ITS | Continuity of Care Document ---
Author Name Unknown Address [address] [place] [address] Phone [phone] Organization [facility], [facility] Address [address] [place] [address] Care Team Providers Care Reflesher Name Role Phone ANT CHAPA Primary Care [...] fever/chills, N/V, other concerns - schedule with [facility] JUDGE for cysto, left URS/HLL/stent (pt leaving [facility] Nov 12, so ideally done prior to that) Addm 10/09: Reviewed CT with Dr. Maier who agrees with cysto, left URS/HLL/stent. Sent case to [facility] for surgery scheduling. [email or web address] Not available 10/09/2023 12:05:13 Plan of Treatment Reminders Order Date Submit Date Provider Last Modified By Organization Details Last Modified Time Details Appointments None recorded. Lab urinalysis , dipstick 2022 023 everton [facility], [address], [place], [address], 14:54:29 Referral None recorded. Procedures None recorded. Surgeries None recorded. Imaging None recorded. Medication Orders None recorded. Patient TargetsNo targets recorded. Patient InstructionsNo instructions recorded. Reason for Referral None Reported. Results Created Date Observation Date Name Description Value Unit Range Abnormal Flag LastModifiedBy Organization Detail LastModifiedTime 10/08/2010/08/2023 urina lysis , dipst ick pH-Status 5.5 Not Available [facility] [address], [place], [address], 10/08/2023 14:48:28 10/08/20 23 10/08/2023 urina lysis , dipst ick Leuko-Status Trace Not Available [facility] [address], [place], [address], 10/08/2023 14:48:28 Result Notes None recorded. Procedures Surgical History Date Name Laterality Status Provider Name and Address Organization Details Recorded Time Appendectomy completed [facility] 10/08/2023 14:53:07 Shoulder joint surgery completed [facility] 10/08/2023 14:53:13 Partial Hysterectomy completed [facility] 10/08/2023 14:53:21 Imaging Results None recorded. [...] Updated DateTime 10/08/2023 152.4 cm 32.2 kg/m2 73609.[address] [facility] 10/08/2023 14:51:18 Social History Question Answer Notes LastModified by Organizat ion Details LastModified Time Tobacco Smoking Status Never Smoker Cristal cruz [facility] 10/08/2023 14:47:01 What Is Your Level [...] High Blood Pressure N Kidney Stones Y Depression N Lung Disease N GERD/Acid Reflux Y Diabetes N Sexually Transmitted Infection N Bleeding Disorder N Cancer N High Cholesterol Y Heart Disease N Gynecological HistoryNo gynecological history recorded. Obstetrics History GPAL:G 2 P 0 0 0 0 Past Encounters Encounter ID Performer Location Encounter Start Date Encounter Closed Date Diagnosis/Indication [id number] VIVIANA [facility] [address] [place] [address] 10/08/2023 14:30:07 10/14/2023 09:40:27 Kidney stone Health Concerns Section Related Observation LastModified by Organization Detai ls LastModified Time None Recorded Concern Status LastModified by Organization Details LastModified Time None Recorded Payers Encounter Date Sequence Insurance Name Policy Number Policy De Santiago Covered Member ID De Santiago Member ID Guarantor Name 10/08/2023 1 UCARE - DOS ON OR AFTER 19 (MEDICARE REPLACEMENT/A DVANTAGE - HMO) [id number] Lee A Paz [id number] Lee A Paz 10/08/2023 2 [place] [employer] [facility] Lee A Apz [id number] Lee A Paz Notes Date Note Type Note Provider Name and Address Organization Details Recorded Time 10/08/2023 text/html HPI Notes: 77F with 10 mm left UPJ/proximal ureteral stone. Seen at [place] ED on 09/30 for left flank and [...] ureteral stone with hydro Trang Gonzales PA-C [address] [place] [address],[address], [place], [address], [facility] 10/09/2023 12:05:24 OBGyn Episode No OBEpisode recorded.
[2023-10-26] MEDS: ONDANSETRON 2 MG/ML inj 4 MG IVP (17:02)
[2023-10-26 17:09] LABS: Basophils Absolute Auto 0.02 K/uL (0.00-0.30); Basophils Percent Auto 0.2 % (0.0-3.0); Eosinophils Absolute Auto 0.04 K/uL (0.00-0.50); Eosinophils Percent Auto 0.4 % (0.0-7.0); Hematocrit 39.4 % (33.0-51.0); Immature Granulocytes Abs Auto 0.04 K/uL (0.00-0.30); Immature Granulocytes Pct Auto 0.4 %; Lymphocytes Percent Auto 10.3 % (20-44); Mean Corpuscular HGB Conc 31 gm/dL (32-36); Mean Corpuscular Hemoglobin 26 pg (26-34); Mean Corpuscular Volume 87 fL (80-100); Monocytes Percent Auto 5.4 % (0.0-11.0); Neutrophils Percent Auto 83.3 % (42.0-72.0); Platelet Count* 233 K/uL (140-440); RDW Coefficient of Variation % 15.8 % (11.5-15.5); Red Blood Count 4.55 m/uL (4.00-5.20); Slide Review Reflex No; White Blood Count* 10.89 K/uL (4.50-11.00)
[2023-10-26 17:27] LABS: Chloride* 106 mmol/L (96-114); Potassium* 3.9 mmol/L (3.6-5.1); Sodium* 141 mmol/L (135-149)
[2023-10-26 17:30] LABS: Creatinine* 1.2 mg/dL (0.5-1.5); Estimated Glomerular Filt Rate 47 ml/min
[2023-10-26 17:31] LABS: Anion Gap 10 mEq/L (7-15); Blood Urea Nitrogen* 22 mg/dL (7-30); Calcium* 10.1 mg/dL (8.4-10.6); Carbon Dioxide* 25 mmol/L (20-32); Glucose* 149 mg/dL (60-115)
[2023-10-26 17:34] LABS: C Reactive Protein* 1.2 mg/dL (0.5-1.0)
== END 2023-10-26 17:56 | disposition home or self-care (01) ==
PROVIDERS: Emergency Provider Family Medicine; PCP Family Medicine
DX: N20.1 Calculus of ureter (principal)
CPT/HCPCS: 36415; 80048; 83605; 85025; 86140; 96374; 96375; 99283; 99284; J1885; J2405; J7030

== ENCOUNTER 2024-04-11 10:35 | Outpatient (CLI) | payer MEDICARE, SELFPAY ==
--- OUTSIDE RECORDS SUMMARY | 2024-04-11 10:54 | XMS_ITS | Data Portability ---
Author Organization [place] [facility], [facility] Address [address] [place] [address] Care Team Providers Care Ingredient Handler Name Role Phone ANT CHAPA Primary Care Provider [phone] Assessment Encounter Date Assessment Date Assessment LastModified [...] MD for cysto, left URS/HLL/stent (pt leaving [facility] Nov 12, so ideally done prior to that) Addm 10/09: Reviewed CT with Dr. Maier who agrees with cysto, left URS/HLL/stent. Sent case to [facility] for surgery scheduling. [email or web address] Not available 10/09/2023 12:05:13 Plan of Treatment Reminders Order Date Submit Date Provider Last Modified By Organization Details Last Modified Time Details Appointments None recorded. Lab urinalysis , dipstick 2022 023 [email or web address] [facility], [address], [place], [address], 14:54:29 Referral None recorded. Procedures None recorded. Surgeries None recorded. Imaging None recorded. Medication Orders None recorded. Patient TargetsNo targets recorded. Patient InstructionsNo instructions recorded. Reason for Referral None Reported. Results Created Date Observation Date Name Description Value Unit Range Abnormal Flag LastModifiedBy Organization Detail LastModifiedTime 10/08/2010/08/2023 urina lysis , dipst ick pH-Status 5.5 Not Available [facility] [address], [place], [address], 10/08/2023 14:48:28 10/08/20 23 10/08/2023 urina lysis , dipst ick Leuko-Status Trace Not Available [facility] [address], [place], [address], 10/08/2023 14:48:28 12/03/19 24 12/03/2023 XR, kidne y + urete r + bladd er No observ ation record ed. [email or web address] [facility] [address] [facility] [address], [place], [address], 2023 09:38:04 Result Notes None recorded. Procedures Surgical History Date Name Laterality Status Provider Name and Address Organization Details Recorded Time Appendectomy completed Cristal cruz [facility] 10/08/2023 14:53:07 Shoulder joint surgery completed Cristal cruz [facility] 10/08/2023 14:53:13 Partial Hysterectomy completed Cristal cruz [facility] 10/08/2023 14:53:21 Imaging Results Imaging Date Name Status LastModified by Organiz ation Details LastModified Time 12/03/2023 XR, kidney + ureter + bladder completed [facility] [address] [facility] [address], [place], [address], 2023 09:38:04 Procedure Notes None recorded. Medical Equipment None [...] Updated DateTime 10/08/2023 152.4 cm 32.2 kg/m2 25596.74 g Cristal Lr [facility] 10/08/2023 14:51:18 Social History Question Answer Notes LastModified by Organizat ion Details LastModified Time Tobacco Smoking Status Never Smoker Cristal cruz [facility] 10/08/2023 14:47:01 What Is Your Level Of Alcohol Consumption? Moderate Information not available 10/08/2023 What Is Your Level Of Caffeine Consumption? Moderate Information not available 10/08/2023 What Was The Date Of Your Most Recent Tobacco Screening? 10/08/2023 Information not available 10/08/2023 Sex: Unknown Functional Status None recorded. Mental Status None recorded. Family History Relationship Description Onset Age of this Age Resolved Age Notes Mother Family history of br east cancer Father Malignant tumor of lung Medical History Condition Response Sexually Transmitted Infection N Diabetes N Other N Bleeding Disorder N High Blood Pressure N Kidney Stones Y High Cholesterol Y GERD/Acid Reflux Y Heart Disease N Cancer N Depression N Lung Disease N Gynecological HistoryNo gynecological history recorded. Obstetrics History GPAL:G 2 P 0 0 0 0 Past Encounters Encounter ID Performer Location Encounter Start Date Encounter Closed Date Diagnosis/Indication Diagnosis SNOMED-CT Code [id number] Trang Gonzales PA-C [facility] [address] [place] [address] 10/08/2023 14:30:07 10/14/2023 09:40:27 Kidney stone [id number] Health Concerns Section Related Observation LastModified by Organization Detai ls LastModified Time None Recorded Concern Status LastModified by Organization Details LastModified Time None Recorded Advance Directives Directive None Recorded Payers Encounter Date Sequence Insurance Name Policy Number Policy De Santiago Covered Member ID De Santiago Member ID Guarantor Name 10/08/2023 1 [employer] - DOS ON OR AFTER 19 (MEDICARE REPLACEMENT/A DVANTAGE - HMO) [id number] Lee A Paz [id number] Lee A Paz 10/08/2023 2 [place] [id number] Lee A Paz [id number] Lee A Paz Notes Date Note Type Note Provider Name and Address Organization Details Recorded Time 10/08/2023 text/html HPI Notes: 77F with 10 mm left UPJ/proximal ureteral stone. Seen at [place] [facility] on 09/30 for left flank and [...] ureteral stone with hydro Trang Gonzales PA-C [address] [facility], [place], [address], [facility] 10/09/2023 12:05:24 OBGyn Episode No OBEpisode recorded.
--- OUTSIDE RECORDS SUMMARY | 2024-04-11 10:54 | XMS_ITS | Clinical Summary ---
Author Organization [facility] Address [place], [place] [address] Care Team Providers Care Clay Artist Name Role Phone Miguel Cedeno MD Unavailable [phone] Tanya Thornton DO Primary Care Provider [phone] Allergies Active Allergy Reactions Criticality Noted Date Comments Hydrocodone GI Upset,Nightmares Low 04/23/2022 Hydrocodone-Acetaminophen GI Upset 07/08/2018 Medications Medication Sig Dispensed Refills Start Date End Date Status ranibizumab (LUCENTIS) 0.5 mg/0.05 mL soln Inject 0.05 mL intraocular one time for 1 dose. Every 7-8 weeks 0.05 mL 7 Active medication order composer Restless Leg supplement at night if needed. 0 7 Active acetaminophen (ACETAMINOPHEN EXTRA STRENGTH) 500 mg tablet Take 1,000 mg by mouth every 6 hours if needed (pain). Max acetaminophen dose: 4000mg in 24 hrs. Active Blood Pressure MonitorIndications: Essential hypertension Monitor blood pressure at home, 3-4 times per week 1 Device 8 Active ox-eu-PZ-vit H-mvxbf-ztnu-zeax (OCUVITE EYE PLUS MULTI) 200-15-150 mcg tab Take by mouth. 0 0 Active cholecalciferol (Vitamin D-3) 2,000 unit capsule Take 1 Capsule (2,000 units) by mouth once daily. 0 2 Active clobetasol cream 0.05% (TEMOVATE) 0.05 % creamIndications:Va ginal itching APPLY TO THE AFFECTED AREA TWICE WEEKLY 60 g 1 3 Active CPAPIndications:LEANN (obstructive sleep apnea) CPAP machine for home use at pressure 5-15cmw, full face mask x1/3month with a full face cushion x1/mo 1 Each 11 3 Active multivitamin with iron (DAILY MULTIVITAMINS/IRON ORAL) Take by mouth. Active amLODIPine (NORVASC) 5 mg tabletIndications:H TN (hypertension) Take 1 Tablet (5 mg) by mouth once daily. 90 Tablet 3 4 Active omeprazole (PRILOSEC) 40 mg Delayed-Release capsuleIndications: Black stools Take 1 Capsule (40 mg) by mouth once daily before a meal. 90 Capsule 4 Active rosuvastatin (CRESTOR) 10 mg tabletIndications:H yperlipidemia, unspecified hyperlipidemia type Take 1 Tablet (10 mg) by mouth at bedtime. 90 Tablet 3 4 Active venlafaxine (EFFEXOR XR) 150 mg Extended-Release capsuleIndications: Major depressive disorder, recurrent, in remission (HC) Take 1 Capsule (150 mg) by mouth once daily with evening meal. 90 Capsule 3 4 Active amLODIPine (NORVASC) 5 mg tabletIndications:H TN (hypertension) Take 1 Tablet (5 mg) by mouth once daily. 90 Tablet 3 3 03/31/20 24 Discontinu ed(Reorder (E-cancel not sent)) venlafaxine (EFFEXOR XR) 150 mg Extended-Release capsuleIndications: Major depressive disorder, recurrent, in remission (HC) Take 1 Capsule (150 mg) by mouth once daily with evening meal. 90 Capsule 3 3 03/31/20 24 Discontinu ed(Reorder (E-cancel not sent)) rosuvastatin (CRESTOR) 10 mg tabletIndications:H yperlipidemia, unspecified hyperlipidemia type Take 1 Tablet (10 mg) by mouth at bedtime. 90 Tablet 3 3 03/31/20 24 Discontinu ed(Reorder (E-cancel not sent)) omeprazole (PRILOSEC) 40 mg Delayed-Release capsuleIndications: Black stools Take 1 Capsule (40 mg) by mouth once daily before a meal. 90 Capsule 4 03/31/20 24 Discontinu ed(Reorder (E-cancel not sent)) Active Problems Problem Noted Date Diagnosed Date Paroxysmal SVT (supraventricular tachycardia) RBBB 03/23/2023 Acute GI bleeding 07/08/2018 Blood [...] gastritis EGD 01/2018 Hiatal hernia, no bleeding 12/2023: was off proton pump inhibitor for 2 weeks and developed black stools, burping and anemia. Resolved back on PROTON PUMP INHIBITOR. Needs lifelong proton pump inhibitor. Unspecified essential hypertension 02/16/2007 Other and unspecified hyperlipidemia 02/16/2007 Irritable bowel syndrome 02/16/2007 Resolved Problems Problem Noted Date Diagnosed Date Resolved Date Deep vein thrombosis (DVT) of lower extremity 07/08/20 18 03/23/2023 Bilateral pulmonary embolism 07/08/2018 02/08/2022 Cystocele, midline 03/02/2008 1 Rectocele 03/02/2008 07/29/2011 Female stress incontinence 03/02/2008 1 Encounters Date Type Department Care Team Description 04/04/2024 Telephone [facility] [address] [place] [address] Tanya Thornton, Results 04/02/2024 Refill [facility] [address] [place] [address] Tanya Thornton DO Refill Request (Amlodipine) 03/31/2024 8:45 AM CDT Office Visit [facility] [address] [place] [address] Tanya Thornton, Follow Up; Medication Management 03/31/2024 Orders Only [facility] [address] [place] [address] [address] Tanya Thornton, DO 1 scan: (1-Ord) NFLD-EKG-6.20.24 03/31/2024 Travel from Last 3 Months Immunizations Name Administration Dates Next Due AMB Influenza, IIV4 PF (=>6 mos Flulaval,Fluzone Fluarix)(Flu Clinic Only) 10/20/2019 COVID-19 vaccine ([employer] NTPainting With A Twist 30mcg/0.3mL) PF, MDV 02/13/2021,01/23/2021 Influenza, High-dose Inactivated [...] PHQ-2 Answer Date Recorded PHQ-2 TOTAL SCORE 0 03/31/2024 Social Connections Answer Date Recorded Frequency of Communication with Friends and Fami ly 0 11/30/2023 Alcohol Use Answer Date Recorded How often do you have a drink containing alcohol ? 2 06/25/2023 How many drinks containing a lcohol do you have on a typical day when you are drinking? 0 06/25/2023 How often do you have five or more drinks on one occasion? 0 06/25/2023 Financial Resource Strain Answer Date R ecorded Difficulty of Paying Living Expenses 3 11/30/2023 Difficulty of Paying Living Expenses Not on file 11/30/2023 Food Insecurity Answer Date Recorded Worried About Running Out of Food in the Last Ye ar 1 11/30/2023 Transportation Needs Answer Date Record ed Lack of Transportation (Medical) 1 11/30/2023 Housing Stability Answer Date Recorded Unable to Pay for Housing in the Last Year 1 11/30/2023 Sex and Gender Information Value Date Recorded Sex Assigned at Not on file Gender Identity Not on file Sexual Orientation Not on file Obstetrics History Para Term AB IAB SAB Ectopic Multiple Livin g Live Births 2 2 2 2 Date Outcome GA Total Labor Labor/2nd/3rd Weight Sex Type Anes PTL Bev A1 A5 Name Clin Term Term Last Filed Vital Signs Vital Sign Reading Time Taken Comments Blood Pressure 117/71 03/31/2024 9:02 AM CDT Pulse 68 03/31/2024 9:02 AM CDT Temperature 36.9 ??C (98.5 ??F) 12/03/2023 1:55 PM CS T Respiratory Rate 18 12/03/2023 1:55 PM [facility] Oxygen Saturation 96% 03/31/2024 9:02 AM CDT Inhaled Oxygen Concentration - - Weight 75.8 kg (167 lb) 03/31/2024 9:02 AM CDT Height 149.9 cm (4' 11) 12/03/2023 10:21 AM [facility] Body Mass Index 33.73 12/03/2023 10:21 AM [facility] Plan of Treatment Health Maintenance Due Date Last Done Comments Zoster (shingles) series for age 50+ (2 of 3) 08/27/2010 07/02/2010 Tetanus booster 03/22/2019 03/22/2009, 12/13/1996 COVID-19 vaccine series ( season) 2023 02/13/2021, 01/23/2021 Medicare Wellness for age 65+ 03/23/2024, 02/06/2022, 01/10/2021, Additional history exists Influenza for age 65+ 06/12/2024 10/20/2019 , 08/11/2018, 11/04/2017, Additional history exists BMI (ht and wt on same day) for age 18+ 11/30/2024 11/30/2023, 08/19/2023, 05/27/2023, Additional history exists Depression screening for age 12+ 04/04/2025 04/04/2024, 04/02/2024, 03/31/2024, Additional history exists Tdap Completed 03/22/2009 Pneumococcal series for age 65+ Completed 5, 08/17/2014 Hepatitis C screening for ag e 18-79 Completed 11/08/2018 DEXA/DXA scan for age 65+ Completed 01/14/2021, Medical Devices Implanted Type Area Squeegeer And Former Device Identifier Shelf Expiration Date Model / Serial / Lot Oj Ivy [id number] - [id number] Implanted:Qty: 1 on 07/22/2011 at [facility] R-365 docobites 12/20/2013 [id number] / / [id number] Procedures Procedure Name Priority Date/Time Associated Diagnosis Comments EKG 12 LEAD Routine 03/31/2024 4:15 PM CDT Irregular heart beat PA READING EKG - NO CHARGE, COMP ONLY Routine 03/31/2024 4:14 PM CDT Irregular heart beat HAPTOGLOBIN Add On 03/31/2024 8:47 AM CDT Anemia of unknown etiology RETICULOCYTES Add On 03/31/2024 8:47 AM CDT Anemia of unknown etiology IRON PLUS IRON BINDING CAP Add On 03/31/2024 8:47 AM CDT Anemia of unknown etiology FERRITIN Add On 03/31/2024 8:47 AM CDT Anemia of unknown etiology BASIC METABOLIC PANEL Routine 03/31/2024 8:47 AM CDT HTN (hypertension) LDL CHOLESTEROL,DIRECT Routine 03/31/2024 8:47 AM CDT Hyperlipidemia, unspecified hyperlipidemia type HEMOGLOBIN Routine 03/31/2024 8:47 AM CDT Gastroesophageal reflux disease without esophagitis XR DXA BONE DENSITY 2 SITES AXIAL Routine 01/14/2021 9:51 AM CDT Osteoporosis screening Asymptomatic menopausal state ANTI HCV Routine 11/08/2018 12:15 PM [facility] Need for hepatitis C screening test from Last 3 Months or Most Recently Relevant to Health Maintenance Results * EKG 12 LEAD (03/31/2024 4:15 PM CDT) Tanya Thornton DO EKG ORD * PA READING EKG - NO CHARGE, COMP ONLY (03/31/2024 4:14 PM CDT) Tanya Thornton DO PB - PROVIDER READ INGS * (ABNORMAL) IRON PLUS IRON BINDING CAP (03/31/2024 8:47 AM CDT) IRON 85 37 - 145 ug/dL 03/31/2024 4:16 PM CDT [facility] UIBC (UNSATURATED) 332 112 - 347 ug/dL 03/31/2024 4:16 PM CDT [facility] IRON BINDING CAPACITY 417(H) 250 - 400 ug/dL 03/31/2024 4:16 PM CDT [facility] IRON,% SATURATION 20 14 - 50 % 03/31/2024 4:16 PM CDT [facility] Blood BLOOD SPECIMEN / Unknown Venipuncture / Unknown 03/31/2024 8:47 AM CDT 03/31/2024 8:49 AM CDT Tanya Thornton DO [facility]STRY [facility] [address] [place] [address], * (ABNORMAL) HEMOGLOBIN (03/31/2024 8:47 AM CDT) HEMOGLOBIN 10.7(L) 12.0 - 16.0 g/dL 03/31/2024 8:52 AM CDT [facility] MCV 86 80 - 100 fL 03/31/2024 8:52 AM CDT [facility] Blood BLOOD SPECIMEN / Unknown Venipuncture / Unknown 03/31/2024 8:47 AM CDT 03/31/2024 8:49 AM CDT [facility] HEMATOLOGY [facility] [address] [place] [address], * RETICULOCYTES (03/31/2024 8:47 AM CDT) Pathologist [facility] RETIC% 1.3 0.5 - 1.5 % 04/01/2024 2:19 PM CDT [facility] RETIC (ABSOLUTE) 0.06 0.03 - 0.08 mil/cu mm 04/01/2024 2:19 PM CDT [facility] Blood BLOOD SPECIMEN / Unknown Venipuncture / Unknown 03/31/2024 8:47 AM CDT 03/31/2024 8:49 AM CDT [facility] HEMATOLOGY [facility] [address] [place] [address], * LDL CHOLESTEROL,DIRECT (03/31/2024 8:47 AM CDT) LDL CHOLESTEROL,DI RECT 62 mg/dL 03/31/2024 4:15 PM CDT [facility] PROVIDER ORDERED STATUS RANDOM 03/31/2024 4:15 PM CDT [facility] Blood BLOOD SPECIMEN / Unknown Venipuncture / Unknown 03/31/2024 8:47 AM CDT 03/31/2024 8:49 AM CDT Narrative [facility] - 03/31/2024 4:15 PM CDT Optimal ?<100 mg/dl Near Optimal ?100-129 mg/dl Borderline High ?? 130-159 mg/dl High ?160-189 mg/dl Very High ? >=190 mg/dl Tanya Thornton DO CHEMISTRY Performing Organization Address [facility] de Phone Number [facility] [address] [place] [address], * HAPTOGLOBIN (03/31/2024 8:47 AM CDT) Haptoglobin 199 30 - 200 mg/dL 03/31/2024 7:08 PM CDT [facility] Blood BLOOD SPECIMEN / Unknown Venipuncture / Unknown 03/31/2024 8:47 AM CDT 03/31/2024 8:49 AM CDT Tanya Thornton DO CHEMISTRY Performing Organization Address [facility] Phone Number [facility] [address] [place] [address], * FERRITIN (03/31/2024 8:47 AM CDT) FERRITIN 15.9 15.0 - 150.0 ng/mL 03/31/2024 4:15 PM CDT [facility] Blood BLOOD SPECIMEN / Unknown Venipuncture / Unknown 03/31/2024 8:47 AM CDT 03/31/2024 8:49 AM CDT Tanya Thornton DO CHEMISTRY Performing Organization Address [facility] de Phone Number [facility] [address] [place] [address], * (ABNORMAL) BASIC METABOLIC PANEL (03/31/2024 8:47 AM CDT) SODIUM 144 136 - 145 mmol/L 03/31/2024 4:15 PM CDT [facility] POTASSIUM 4.0 3.5 - 5.1 mmol/L 03/31/2024 4:15 PM CDT [facility] CHLORIDE 108(H) 98 - 107 mmol/L 03/31/2024 4:15 PM CDT [facility] CO2,TOTAL 24 22 - 29 mmol/L 03/31/2024 4:15 PM CDT [facility] ANION GAP 12 5 - 18 03/31/2024 4:15 PM T [facility] GLUCOSE 116(H) 70 - 99 mg/dL 03/31/2024 4:15 PM T [facility] CALCIUM 10.8(H) 8.8 - 10.2 mg/dL 03/31/2024 4:15 PM T [facility] BUN 18 8 - 23 mg/dL 03/31/2024 4:15 PM T [facility] CREATININE 0.71 0.50 - 0.90 mg/dL 03/31/2024 4:15 PM T [facility] BUN/CREAT RATIO 25(H) 10 - 20 4:15 PM T [facility] eGFR 88(L) >90 mL/min/1.7 3m2 03/31/2024 4:15 PM T [facility] Comment:As of 2021, eG FR is calculated by the CKD-EPI creatinine equation without race adjustment. ??eGFR can be influenced by muscle mass, exercise, and diet. ??The reported eGFR is an estimation only and is only applicable if the renal function is stable. Blood BLOOD SPECIMEN / Unknown Venipuncture / Unknown 03/31/2024 8:47 AM CDT 03/31/2024 8:49 AM CDT Tanya Thornton DO CHEMISTRY [facility] [address] [place] [address], * (ABNORMAL) XR DXA BONE DENSITY 2 SITES AXIAL (01/14/2021 9:51 AM CDT) Anatomical Region Laterality Modality Spine, HIPS, HIPL, HIPR Other Impressions 01/17/2021 12:02 PM CDT Osteopenia. RECOMMENDATIONS: The National Osteoporosis Foundation recommends pharmacologic treatment for patients with T-scores of -2.5 or less, patients with prior history of fragility fractures, or patients with 10-year probability of greater than 3% at hips or greater than 20% of suffering major osteoporotic fractures. Recommend continued optimization of calcium and vitamin D intake through dietary means and/or supplementation and regular exercise. Repeat scan recommended in 3-5 years. Purvi Cortes PA-C [facility] 01/17/2021 Narrative 01/17/2021 12:02 PM CDT XR DXA Bone Mineral Density (BMD) EXAM LOCATION: [address] [address] PATIENT NAME: Rosa Mullen DATE OF : 1945 EXAM DATE: 01/14/2021 REQUESTING PROVIDER: Tanya Thornton, GENDER AT : female HEIGHT: 4' 11.45 (01/10/2021) WEIGHT: ??168 lb (01/10/2021) MENOPAUSAL STATUS: Postmenopausal RACE/ETHNICITY: White RISK FACTORS: NO RISK FACTORS CURRENT MEDICATION FOR BONE LOSS: NONE INDICATION: SCREENING FOR OSTEOPOROSIS COMPARISON DATE(S): 2011 DXA scans are compared to prior studies for a patient only when the two (or more) studies were performed on the same scanner. It is not possible to compare data generated on one scanner to data from another because there are not standards in DXA equipment. This applies even if the two scanners are made by the same director of research. PROCEDURE: Dual-energy x-ray absorptiometry performed with routine technique. Reporting is completed in the form of a T-score. The T-score represents the standard deviation from peak bone mass based on young healthy adult. A Z-score is used for diagnosis in premenopausal women, and for men under the age of 50. FINDINGS: RESULT LUMBAR SPINE L1 - L4 BMD: 1.315 g/cm2 T-Score: 1.1 Z-Score: 2.5 Comparison to most recent scan in 2012: ??Decrease -1.6%. RESULT FEMORAL NECK Left Total Femoral Neck BMD: 0.836 g/cm2 T-Score: -1.5 Z-Score: 0.1 RESULT TOTAL HIP Bilateral Total Hip BMD: 0.950 g/cm2 T-Score: -0.5 Z-Score: 0.9 Comparison to most recent scan in 2012: ??Decrease -15.0%. WHO criteria: Normal: T-score at or above -1 SD Osteopenia: T-score between -1.1 and -2.4 SD Osteoporosis: T-score at or below -2.5 SD FRAX RISK CALCULATION (USED FOR OSTEOPENIA ONLY): 10-year probability of major osteoporotic fracture: 10.0%. 10-year probability of hip fracture: 1.6%. Tanya Thornton DO DEXA * ANTI HCV [00843.2] (11/08/2018 12:15 PM [facility]) HEPATITIS C ANTIBODY Non-React todd Non-React todd 11/08/2018 4:12 PM [facility] Comment:Antibodies to HCV no t detected; does not exclude the possibility of exposure to HCV. Blood BLOOD SPECIMEN / Unknown Venipuncture / Unknown 11/08/2018 12:15 PM [facility] 11/08/2018 12:20 PM [facility] Tanya Thornton DO SEND OUTS [facility] [address] [place] [address], [place] from Last 3 Months or Most Recently Relevant to Health Maintenance Advance Directives * Full Code (Latest Code Status on File) Date Activated Date Inactivated Comments 12/03/2023 10:18 AM 12/03/2023 4:04 PM Question Answer Comments Code Status Discussion: Unable to Assess Preferences, Provider to review later * Full Code Date Activated Date Inactivated Comments 07/08/2018 3:58 PM 07/14/2018 2:27 PM * Full Code Date Activated Date Inactivated Comments 07/22/2011 7:27 AM 07/23/2011 2:56 PM Care Teams Clay Artist Relationship Specialty Start Date End Date Tanya Thornton [place] [address] PCP - General Family Practice 12/31/20 Miguel Cedeno MD [address] [address] Ophthalmology Surgery 08/17/14
--- NOTE | 2024-04-11 11:07 | W.ANESCHARGE ---
Anesthesia Charges Start Date/Time Anesthesia Start Date: 04/11/24 Anesthesia Start Time: 11:16 Stop Date/Time Anesthesia Stop Date: 04/11/24 Anesthesia Stop Time: 11:58 Summary Extremes of Age - Over 70 or under 1: MDA
--- NOTE | 2024-04-11 12:00 | W.ANESCHARGE ---
Anesthesia Charges Start Date/Time Anesthesia Start Date: 04/11/24 Anesthesia Start Time: 11:16 Stop Date/Time Anesthesia Stop Date: 04/11/24 Anesthesia Stop Time: 11:58 Summary Extremes of Age - Over 70 or under 1: [employer]
== END 2024-04-11 10:36 | disposition home or self-care (01) ==
LOC: OP CLINIC 10:36
PROVIDERS: PCP Family Medicine; Visit Provider Surgery
DX: K92.2 Gastrointestinal hemorrhage, unspecified (principal); K44.9 Diaphragmatic hernia without obstruction or gangrene; D50.0 Iron deficiency anemia secondary to blood loss (chronic); K62.89 Other specified diseases of anus and rectum; K57.30 Diverticulosis of large intestine without perforation or abscess without bleeding
CPT/HCPCS: 00813; 43239; 45380; 88305; 99100; J2704

== ENCOUNTER 2024-10-06 20:17 | Emergency (ER) | payer MEDICARE, SELFPAY ==
--- OUTSIDE RECORDS SUMMARY | 2024-10-06 20:19 | XMS_ITS | Data Portability ---
Author Organization [place] [facility] Address [address] [place] [address] Care Team Providers Care Oracle Hyperion Consultant Name Role Phone ANT CHAPA Primary Care Provider [phone] Assessment Encounter Date Assessment Date Assessment LastModified [...] and possible need for additional/stag ed procedure. She would like to proceed with surgery. 1. 10 mm left UPJ/left prox ureteral [...] MD for cysto, left URS/HLL/stent (pt leaving town Nov 12, so ideally done prior to that) Addm 10/09: Reviewed CT with Dr. Maier who agrees with cysto, left URS/HLL/stent. Sent case to [facility] for surgery scheduling. [email or web address] Not available 10/09/2023 12:05:13 Plan of Treatment Reminders Order Date Submit Date Provider Last Modified By Organization Details Last Modified Time Details Appointments None recorded. Lab urinalysis , dipstick 2022 023 [email or web address] [facility], [address], [place], [address], 14:54:29 Referral None recorded. Procedures None recorded. Surgeries None recorded. Imaging None recorded. Medication Orders None recorded. Patient TargetsNo targets recorded. Patient InstructionsNo instructions recorded. Reason for Referral None Reported. Results Created Date Observation Date Name Description Value Unit Range Abnormal Flag Note LastModifiedBy Organization Detail LastModifiedTime 10/08/2010/08/2023 urina lysis , dipst ick pH-Status 5.5 Not Available [facility] [address], [place], [address], 10/08/2023 14:48:28 10/08/20 23 10/08/2023 urina lysis , dipst ick Leuko-Status Trace Not Available [facility] [address], [place], [address], 10/08/2023 14:48:28 12/03/19 24 12/03/2023 XR, kidne y + urete r + bladd er No observ ation record ed. [email or web address] [facility] [address] [address], [place], [address], 2023 09:38:04 Result Notes None recorded. Procedures Surgical History Date Name Laterality Status Provider Name and Address Organization Details Recorded Time Appendectomy completed Cristal Lr [facility] 10/08/2023 14:53:07 Shoulder joint surgery completed [facility]L [facility] 10/08/2023 14:53:13 Partial Hysterectomy completed Cristal Lr [facility] 10/08/2023 14:53:21 Imaging Results Imaging Date Name Status LastModified by Organiz ation Details LastModified Time 12/03/2023 XR, kidney + ureter + bladder completed [email or web address] [facility] [address] [facility] [address], [place], [address], 2023 09:38:04 Procedure Notes None recorded. Medical [...] Updated DateTime 10/08/2023 152.4 cm 32.2 kg/m2 73873.74 g Crist[facility] Lr [facility] 10/08/2023 14:51:18 Social History Question Answer Notes LastModified by Organizat ion Details LastModified Time Tobacco Smoking Status Never Smoker [facility] L[facility] 10/08/2023 14:47:01 What Is Your Level [...] Age of this Age Resolved Age Notes LastModified by Organization Details LastModified Time Mother Family history of breast cancer [email or web address] Not available 2022 14:52:23 Father Malignant tumor of lung [email or web address] Not available 2022 14:52:34 Medical History Condition Response Diabetes N Sexually Transmitted Infection N Other N Bleeding Disorder N High Blood Pressure N Kidney Stones Y Cancer N Lung Disease N Depression N High Cholesterol Y GERD/Acid Reflux Y Heart Disease N Gynecological HistoryNo gynecological history recorded. Obstetrics History GPAL:G 2 P 0 0 0 0 Past Encounters Encounter ID Performer Location Encounter Start Date Encounter Closed Date Diagnosis/Indication Diagnosis SNOMED-CT Code Diagnosis ICD10 Code [id number] Trang Gonzales PA-C [facility] [address] [place] [address] 10/08/2023 14:30:07 10/14/2023 09:40:27 Kidney stone 14013111 N20.0 Health Concerns Section Related Observation LastModified by Organization Detai ls LastModified Time None Recorded Concern Status LastModified by Organization Details LastModified Time None Recorded Advance Directives Directive None Recorded Payers Encounter Date Sequence Insurance Name Policy Number Policy De Santiago Covered Member ID De Santiago Member ID Guarantor Name 10/08/2023 1 [employer] - DOS ON OR AFTER 19 (MEDICARE REPLACEMENT/A DVANTAGE - HMO) [id number] Lee A Paz [id number] Lee A Paz 10/08/2023 2 [place] [employer] Lee A Paz [id number] Lee A Paz Notes Date Note Type Note Provider Name and Address Organization Details Recorded Time 10/08/2023 text/html 77F with 10 mm left UPJ/proximal ureteral stone. Seen at [facility] on 09/30 for left flank and [...] stones. [facility]A today trace leuks, protein 30 Labs:09/30/23 Cr 0.6 Imagin09/30/23: CT A/P: 7 x 4 x 10 mm left UPJ/left proximal ureteral stone with hydro Trang Gonzales PA-C [address] [facility],[address], [place], [address], [place] [facility] 10/09/2023 12:05:24 OBGyn Episode No OBEpisode recorded.
[2024-10-06 20:25] VITALS: BP 153/86; PULSE 74; RESP 18; TEMP 37.4; O2SAT 97
--- NOTE | 2024-10-06 20:47 | ED.GENADULT ---
HPI - General Adult General Date Seen: 10/06/24 Chief complaint: Laceration/Wound Stated complaint: fell, facial injury Time Seen by Provider: 10/06/24 20:43 History of Present Illness HPI narrative: 78-year-old female with history of previous knee replacement, history of postoperative PE (not on anticoagulation) dyslipidemia (rosuvastatin), hypertension (amlodipine) presenting to the ER today for evaluation of facial injury after she tripped and fell. She was attempting to put her family's dog inside the house today. He was not in this lesion but she was holding a by the collar. It abruptly ran forward and then pulled her forward. She fell forward and struck her face against concrete. She suffered bruising to her left forehead, left eyebrow and left upper lid. She also suffered a laceration to her left eyebrow. She had no loss of consciousness. She has pain around the left forehead but no other generalized headache. No confusion. Normal vision in each eye. No nausea or vomiting. She does not have any neck pain. No numbness or weakness arms or legs. She is not anticoagulated. She did not injure her chest. No trouble breathing. No abdominal pain. No back pain. No pain in her shoulders. She does have a very superficial scrape Rave on the palmar surface of the 5th metacarpal in her left hand but would not have come to the doctor for that scrape. She did not injure her hips. She does have some pain on the lateral aspect of her left midfoot and forefoot for which she has been limping. No other injuries from the fall. She is not anticoagulated. She is not sure when her last tetanus shot was. Related Data Home Medications ?Medication ?Instructions ?Recorded ?Confirmed acetaminophen 500 mg tablet 1,000 mg PO PRN 04/23/22 04/23/22 amlodipine 5 mg tablet 5 mg PO DAILY 04/23/22 10/26/23 cholecalciferol (vitamin D3) 50 2,000 unit PO DAILY 04/23/22 10/26/23 mcg (2,000 unit) tablet clobetasol 0.05 % topical cream 1 topical .2X/Week as needed PRN 04/23/22 04/23/22 omeprazole 20 mg capsule,delayed 20 mg PO QDAY 04/23/22 10/26/23 release venlafaxine 150 mg 150 mg PO DAILY 04/23/22 10/26/23 capsule,extended release 24 hr vit A 300 mcg-C 200 mg-E 27 1 tab PO DAILY 04/23/22 10/26/23 mg-lutein 2 mg and minerals tablet (Ocuvite with Lutein) rosuvastatin 10 mg tablet 10 mg PO QPM 09/28/23 10/26/23 cephalexin .ROUTE 10/26/23 oxycodone PO 10/26/23 Previous Rx's ?Medication ?Instructions ?Recorded peg 3350-electrolytes 236 240 ml PO ONCE #1 bottle 04/01/24 gram-22.74 gram-6.74 gram-5.86 gram solution (Golytely) Allergies Allergy/AdvReac Type Severity Reaction Status Date / Time acetaminophen (From [place]) Allergy Unknown Verified 10/06/24 20:23 hydrocodone AdvReac Mild Nightmares Verified 10/06/24 20:23 PFSH PFSH Medical History Postoperative pulmonary embolism ?T81.718A - Complication of other artery following a procedure, not elsewhere classified, initial encounter (ICD-10) ?I26.99 - Other pulmonary embolism without acute cor pulmonale (ICD-10) Surgical History Status post total knee replacement ?Z96.659 - Presence of unspecified artificial knee joint (ICD-10) Status post arthroscopy of left knee ?Z98.890 - Other specified postprocedural states (ICD-10) Social History Smoking Status: Never smoker How often do you have a drink containing alcohol: never How often do you have six or more drinks on one occasion: Never AUDIT-C Alcohol total score: 0 Non-prescribed substance use: denies use Exam Narrative: Exam Narrative: Constitutional: Appears well-developed and well-nourished. Alert. Conversant. Non toxic. HENT: Head: She has left frontal and left upper eyelid ecchymosis. Periorbital ecchymosis. No exophthalmos or enophthalmos. Normal common pain-free range of motion in her eyes. EOMs normal. There is a 2 cm superficial laceration running horizontally on her left supraorbital ridge just superior to the eyebrow. Minimal active losing.. No foreign body. Nose: Nose normal. Mouth/Throat: Oral mucosa is clear and moist. no trismus. Pharynx normal. Tonsils symmetric. No tonsillar enlargement, erythema, or exudate. Eyes: Conjunctivae normal. EOM normal. Pupils equal, round, and reactive to light. No scleral icterus. Neck: Normal range of motion. Neck supple. No tracheal deviation present. No step-off. No posterior midline tenderness Cardiovascular: Normal rate, regular rhythm. No gallop. No friction rub. No murmur heard. Symmetric radial artery pulses Pulmonary/Chest: Effort normal. No stridor. No respiratory distress. No wheezes. No rales. No rhonchi . No tenderness. Abdominal: Soft. Bowel sounds normal. No distension. No mass. No tenderness. No rebound. No guarding. Musculoskeletal: RUE: Normal range of motion. No tenderness. No deformity LUE: Normal range of motion. No tenderness. No deformity very superficial 7 8 mm abrasion on the palmar surface of the left hand 5th metacarpal head. Normal range of motion in the wrist, hand, MCP, PIP, DI P. No swelling. No bruising. No signs of fracture. RLE: Normal range of motion. No edema. No tenderness. No deformity Pelvis is stable. Hips are nontender T and L-spine nontender. LLE: Normal range of motion. No edema. Hip, knee, coleman, gastroc, ankle are nontender. Normal plantar flexion and dorsiflexion of the ankle. Mild tenderness and swelling over the lateral aspect of the midfoot and forefoot including the 5th metatarsal head and along the lateral side of the foot. Normal toe wiggling. Intact distal sensory function. Normal distal cap refill. Normal radial pulse. Neurological: Alert and oriented to person, place, and time. Normal strength. CN II-VII intact. No sensory deficit. GCS eye subscore is 4. GCS verbal subscore is 5. GCS motor subscore is 6. Normal coordination Skin: Skin is warm and dry. No rash noted. No pallor. Normal capillary refill. Psychiatric: Normal mood. Normal affect. Const: Vital Signs, click to edit/add: Vital Signs - 24 hr 10/06/24 20:25 10/06/24 22:44 Temperature 99.3 F Pulse Rate [Pulse Oximeter] 74 78 Respiratory Rate 18 18 Blood Pressure [Ri ght Upper Arm] 153/86 H 153/96 H Pulse Oximetry 97 98 Oxygen Delivery Me thod Room Air Room Air Course Course ED Course: Patient seen and evaluated in ER room 1. I ordered let for topical anesthesia for her cut. Reevaluation(s) Reevaluation #1: Recheck-head CT scan shows evidence for acute intracranial hemorrhage. Updated the patient her family. They agree with plan to transfer the trauma center for observation. She remains GCS 15. No focal focal deficits. Vital Signs Vital signs: Initial Vital Signs Temperature 99.3 F 10/06/24 20:25 Temperature Source Temporal Artery Scan 10/06/24 20:25 Pulse Rate 74 10/06/24 20:25 Pulse Rhythm Regular 10/06/24 20:25 Respiratory Rate 18 10/06/24 20:25 Blood Pressure 153/86 H 10/06/24 20:25 Blood Pressure Mean 108 H 10/06/24 20:25 Blood Pressure Position Sitting 10/06/24 20:25 Pulse Oximetry 97 10/06/24 20:25 Oxygen Delivery Method Room Air 10/06/24 20:25 Vital Signs Temperature 99.3 F 10/06/24 20:25 Pulse Rate 74 10/06/24 20:25 Respiratory Rate 18 10/06/24 20:25 Blood Pressure 153/86 H 10/06/24 20:25 Pulse Oximetry 97 10/06/24 20:25 Oxygen Delivery Method Room Air 10/06/24 20:25 Temperature 99.3 F 10/06/24 20:25 Pulse Rate 78 10/06/24 22:44 Respiratory Rate 18 10/06/24 22:44 Blood Pressure 153/96 H 10/06/24 22:44 Pulse Oximetry 98 10/06/24 22:44 Oxygen Delivery Method Room Air 10/06/24 22:44 Medications Administered Medications: Discontinued Medications Generic Name Dose Route Start Last Admin Trade Name Freq PRN Reason Stop Dose Admin Acetaminophen 1,000 mg 10/06/24 22:06 10/06/24 22:12 Acetaminophen 500 Mg Tablet PO 10/06/24 22:07 1,000 mg ONCE ONE Administration Lidocaine/Epinephrine/Tetracaine 3 ml 10/06/24 20:57 10/06/24 22:37 Lidocaine/Epinep/Tetracaine 3 Ml Gel..Ml. TOPICAL 10/06/24 20:58 Not Given ONCE ONE Medical Decision Making MDM Narrative Medical decision making narrative: Very pleasant 78-year-old female who is not anticoagulated presenting to the ER today for injuries after a ground level fall when she was pulled forward by a dog that she was trying to restrain by holding its collar. Patient does present with signs of head trauma and a fairly significant left frontal hematoma and left so eyebrow laceration. Given age, head CT is obtained. It does show findings of a small subdural hematoma in the falx and also traumatic subarachnoid hemorrhages in the temporal lobes. Fortunately the patient has a GCS of 15, normal mental status,. She is not anticoagulated. She did is developing headache here in the ER. At this point I do think she needs to be admitted at a trauma center for neurologic monitoring and serial scans overnight. Were only about 1 hour out from her injury and there is risk for expanding of the subdural. Discussed with the patient and her family and they agree. Discussed with [facility]. Patient is accepted as an ER to ER transfer by doctor Treviño. I also ordered establishment an IV so we could check labs, coags. After trans, labs came back showing a white count of 11.8, normal hemoglobin, normal platelet count. Normal INR. Normal BMP save for glucose 134 and Calcium 10.7. She also hurt her left foot. X-rays of the left foot do show evidence for a 5th metatarsal fracture by my read. Patient was transferred by EMS before formal radiology interpretation. Will need further evaluation at [facility]. Likely require casting. She also has a left eyebrow laceration. I ordered placement of let here in the ER for topical anesthesia. At this point clinical prior he is to get her transferred to the trauma center to monitor for potential neurologic deterioration. They can close her eyebrow laceration when she arrives at [facility]. She is transferred by EMS. Broad differential considered. When she arrived she was not really complaining of headache and had no associated neck pain. At this point she did not have any distracting neurologic injuries so we were able to clear her C-spine by clinical criteria. She is not having any evidence for thoracic or abdominal injury. No hip pain or pelvic pain to suggest pelvic fracture. While she was in the ER she began developing headache for which we administered acetaminophen. Of note computer lists acetaminophen as an allergy but this is an error. She is low allergic to [place], and likely the allergy is truly to the hydrocodone, not to the acetaminophen., Lab Data Labs: Lab Results 10/06/24 Range/Units 21:58 WBC 11.89 H (4.50-11.00) K/uL RBC 4.54 (4.00-5.20) m/uL Hgb 13.3 (12.0-16.0) gm/dL Hct 43.1 (33.0-51.0) % MCV 95 (80-100) fL MCH 29 (26-34) pg MCHC 31 L (32-36) gm/dL RDW Coeff of Felix 13.6 (11.5-15.5) % Plt Count 225 (140-440) K/uL Neut % (Auto) 81.1 H (42.0-72.0) % Lymph % (Auto) 11.5 L (20-44) % Rowan % (Auto) 6.3 (0.0-11.0) % Eos % (Auto) 0.6 (0.0-7.0) % Baso % (Auto) 0.3 (0.0-3.0) % Neut # (Auto) 9.60 H (1.7-7.0) K/uL Lymph # (Auto) 1.40 (0.90-2.90) K/uL Rowan # (Auto) 0.70 (0.00-0.90) K/UL Eos # (Auto) 0.10 (0.00-0.50) K/uL Baso # (Auto) 0.00 (0.00-0.30) K/uL Abs Immat Gran (auto) 0.00 (0.00-0.30) K/uL Imm/Tot Granulo (auto) 0.2 % INR 0.93 (0.91-1.10) Sodium 143 (135-149) mmol/L Potassium 3.9 (3.6-5.1) mmol/L Chloride 109 (96-114) mmol/L Carbon Dioxide 26 (20-32) mmol/L Anion Gap 8 (7-15) mEq/L BUN 20 (7-30) mg/dL Creatinine 0.8 (0.5-1.5) mg/dL Estimated GFR 76 ml/min Glucose 134 H (60-115) mg/dL Calcium 10.7 H (8.4-10.6) mg/dL Imaging Data CT scan - head: Attestation: I have reviewed the pertinent imaging results. My impression: Phone call from consulting radiology at 9:41 p.m.. They indicate that there is a small subdural without mass effect and also associated subarachnoid hemorrhages from trauma (not aneurysmal subarachnoid). Radiologist's impression: IMPRESSION: 1. Thin acute subdural hematoma along the falx and left tentorial leaflet. Trace subarachnoid hemorrhage within the posterior temporal regions. No significant mass effect. XR left foot: Attestation: I have reviewed the pertinent imaging results. My impression: Comminuted in left 5th metatarsal fracture Discharge Plan Discharge Clinical Impression: Subdural hematoma, Laceration of eyebrow, Fracture of fifth metatarsal bone of left foot Patient Disposition: Xfer Other Prescriptions: No Action cholecalciferol (vitamin D3) 50 mcg (2,000 unit) tablet 2,000 unit PO DAILY Ocuvite with Lutein 300 mcg-200 mg-27 mg-2 mg tablet 1 tab PO DAILY amlodipine 5 mg tablet 5 mg PO DAILY venlafaxine 150 mg capsule,extended release 24hr 150 mg PO DAILY clobetasol 0.05 % cream 1 topical .2X/Week as needed PRN omeprazole 20 mg capsule,delayed release(DR/EC) 20 mg PO QDAY acetaminophen 500 mg tablet 1,000 mg PO PRN rosuvastatin 10 mg tablet 10 mg PO QPM cephalexin .ROUTE oxycodone PO peg 3350-electrolytes [Golytely] 236-22.74-6.74 -5.86 gram recon soln 240 ml PO ONCE Qty: 1 0RF Rx Instructions: 4pm day prior to procedure. Drink 8oz glass every 15 minutes until 1/2 of solution is gone. 6 hours prior to procedure drink 8 oz glass every 15 minutes until remaining solution gone. Stand Alone Forms: [facility] Info Instructions
--- NOTE | 2024-10-06 20:57 | CRLHL7_ITS ---
For Patients: As a result of the Century Cures Act, medical imaging exams and procedure reports are released immediately into your electronic medical record. You may view this report before your referring provider. If you have questions, please contact your health care provider. INDICATION: Fall. Left frontal scalp hematoma. TECHNIQUE: CT of the head without contrast. Coronal and sagittal reformats are included. COMPARISON: None. FINDINGS: Thin acute subdural hematoma along the falx and left tentorial leaflet, most prominent near the superior frontal convexity on the left where a focus of blood products measures up to 12 millimeters in diameter. Trace acute subarachnoid hemorrhage within the right temporal sulci and likely the left posterior temporal sulci as well. No mass effect or midline shift. No hydrocephalus or extra-axial collections. White matter is within normal limits for age. No acute osseous abnormalities. Mastoid air cells and paranasal sinuses are clear. Normal soft tissues. IMPRESSION: IMPRESSION: 1. Thin acute subdural hematoma along the falx and left tentorial leaflet. Trace subarachnoid hemorrhage within the posterior temporal regions. No significant mass effect. Please note that all CT scans at this facility use dose modulation, iterative reconstruction, and/or weight-based dosing when appropriate to reduce radiation dose to as low as reasonably achievable. Dictated by Haider Stock MD @ 10/06/2024 9:38:23 PM (Electronically Signed)
--- NOTE | 2024-10-06 20:57 | CRLHL7_ITS ---
For Patients: As a result of the Century Cures Act, medical imaging exams and procedure reports are released immediately into your electronic medical record. You may view this report before your referring provider. If you have questions, please contact your health care provider. Indication: Trauma. Technique: Three views of the left foot. Comparison: None. Findings: Acute comminuted fractures of the 5th metatarsal with proximal fracture line at the level of the mid to distal shaft and distal fracture line at the level of the metatarsal neck with displaced fracture fragments to the level of the proximal phalangeal base. No dislocation. Lisfranc alignment is maintained. Regional soft tissue swelling present. No radiopaque foreign body. Impression: Comminuted fractures of the 5th metatarsal, as above. Dictated by Be Balderrama MD @ 10/06/2024 9:58:23 PM (Electronically Signed)
[2024-10-06] MEDS: ACETAMINOPHEN 500 MG TABLET 1000 MG PO (22:12)
[2024-10-06 22:15] LABS: Basophils Percent Auto 0.3 % (0.0-3.0); Eosinophils Percent Auto 0.6 % (0.0-7.0); Hematocrit 43.1 % (33.0-51.0); Hemoglobin* 13.3 gm/dL (12.0-16.0); Immature Granulocytes Pct Auto 0.2 %; Lymphocytes Percent Auto 11.5 % (20-44); Mean Corpuscular HGB Conc 31 gm/dL (32-36); Mean Corpuscular Hemoglobin 29 pg (26-34); Mean Corpuscular Volume 95 fL (80-100); Monocytes Percent Auto 6.3 % (0.0-11.0); Neutrophils Percent Auto 81.1 % (42.0-72.0); Platelet Count* 225 K/uL (140-440); RDW Coefficient of Variation % 13.6 % (11.5-15.5); Red Blood Count 4.54 m/uL (4.00-5.20); White Blood Count* 11.89 K/uL (4.50-11.00)
[2024-10-06 22:16] LABS: Slide Review Reflex No
[2024-10-06 22:31] LABS: Chloride* 109 mmol/L (96-114); Sodium* 143 mmol/L (135-149)
[2024-10-06 22:32] LABS: Potassium* 3.9 mmol/L (3.6-5.1)
[2024-10-06 22:34] LABS: Creatinine* 0.8 mg/dL (0.5-1.5); Estimated Glomerular Filt Rate 76 ml/min
[2024-10-06 22:35] LABS: Anion Gap 8 mEq/L (7-15); Blood Urea Nitrogen* 20 mg/dL (7-30); Calcium* 10.7 mg/dL (8.4-10.6); Carbon Dioxide* 26 mmol/L (20-32); Glucose* 134 mg/dL (60-115)
[2024-10-06 22:41] LABS: INR 0.93 (0.91-1.10); Prothrombin Time 13.1 Seconds
[2024-10-06 22:44] VITALS: BP 153/96; PULSE 78; RESP 18; O2SAT 98
== END 2024-10-06 22:47 | disposition other institution (70) ==
PROVIDERS: Emergency Provider Emergency Medicine; PCP Family Medicine
DX: S06.5XAA Traumatic subdural hemorrhage with loss of consciousness status unknown, initial encounter (principal); S01.112A Laceration without foreign body of left eyelid and periocular area, initial encounter; S92.502A Displaced unspecified fracture of left lesser toe(s), initial encounter for closed fracture; W18.30XA Fall on same level, unspecified, initial encounter
CPT/HCPCS: 36415; 70450; 73630; 80048; 85025; 85610; 99285; A9270

== ENCOUNTER 2024-10-06 22:30 | Outpatient (CLI) | payer MEDICARE, SELFPAY | END 2024-10-06 22:31 | disposition home or self-care (01) | LOC: AMB 10-09 10:33 | PROVIDERS: PCP Family Medicine; Visit Provider Emergency Medicine | DX: S06.5XAA Traumatic subdural hemorrhage with loss of consciousness status unknown, initial encounter (principal) | CPT/HCPCS: A0425; A0429 ==

== ENCOUNTER 2025-05-29 15:00 | Outpatient (RCR) | payer MEDICARE, SELFPAY | END 2025-09-01 14:28 | disposition home or self-care (01) | PROVIDERS: PCP Family Medicine; Visit Provider Family Medicine | DX: M54.2 Cervicalgia (principal); G89.29 Other chronic pain; Z87.828 Personal history of other (healed) physical injury and trauma; R51.9 Headache, unspecified; R26.89 Other abnormalities of gait and mobility; Z51.89 Encounter for other specified aftercare | CPT/HCPCS: 97110; 97112; 97140; 97161 ==